=== PATIENT | male | born 1945 | race Caucasian/White ===

== ENCOUNTER 2024-11-14 22:40 | Inpatient (IN) ==
--- NOTE | 2024-11-14 23:23 | Emergency Department Note ---
History of Present Illness General Chief complaint: Abdominal Pain Stated complaint: FEVER, BODY ACHES, HERNIA ISSUES Time Seen by Provider: 11/14/24 22:54 History of Present Illness Maximum Pain Intensity: 5 This 77-year-old male with DM2 with no prior abdominal surgeries presents ER complaining of abdominal pain who has known hernias with fevers today that is now resolved. Patient denies chest pain, dyspnea, cough, congestion, vomiting, diarrhea, urinary symptoms. No history of bowel obstruction. No excessive Tylenol use. Past Med/Surg History Problem List (Updated 11/15/24 @ 01:47 by Judi Paris PA-C) Pancreatitis (Acute) Elevated LFTs (Acute) Abdominal pain, acute (Acute) Social History Smoking Status: Never smoker Preferred Language: Kinyarwanda Feels Safe at Home: Yes Review of Systems A total of 10 systems reviewed and were otherwise negative Physical Exam Vital Signs Vital Signs - 24 hr 11/14/24 22:44 11/15/24 00:12 11/15/24 00:19 Temperature 36.9 C Temperature Source Temporal Artery Scan Pulse Rate 110 H 81 Pulse Rate [Apical] 83 Pulse Rhythm [Apical] Regular Pulse Strength [Apical] Normal Respiratory Rate 18 18 Respiratory Effort / Characteristics Non-Labored Spontaneous Non-Labored Respiratory Depth Normal Normal Respiratory Pattern Regular Blood Pressure 109/71 Blood Pressure [Right Arm] 122/66 Blood Pressure Mean 83 Blood Pressure Mean [Right Arm] 84 Blood Pressure Position [Right Arm] Sitting Pulse Oximetry 95 96 Oxygen Delivery Method Room Air Room Air Sepsis Recent Fever Within 48 Hours Yes Sepsis New/Unexplained Change in Mental Status No Sepsis Action Taken by Nursing No Action Required VITALS: Vitals are noted on the nurse's note and reviewed by myself. Vital signs stable. GENERAL: Pleasant gentleman with family present, in no acute distress, nondiaphoretic, well-developed well-nourished. SKIN: Capillary reflex less than 2 seconds. HEENT: Normocephalic. PERRLA. EOMI. Nares patent. Mucous membranes moist. Neck is supple without nuchal rigidity. HEART: Regular rate and rhythm LUNGS: Clear to auscultation bilaterally without wheezes, rales or rhonchi. No retractions or accessory muscle use. ABDOMEN: Positive bowel sounds x 4. Normal tympanic percussion. Soft, tender to palpation lower abdomen, without masses or organomegaly. Gaytan sign negative. No guarding or rebound tenderness. no CVA tenderness MUSCULOSKELETAL: No gross musculoskeletal defects. NEURO: Patient was alert and oriented to person place and time. No focal neurological deficits. Course Administered Medications Discontinued Medications Sodium Chloride (Nss) 500 mls @ 999 mls/hr IV .Q31M ONE Stop: 11/14/24 23:26 Last Infusion: 11/15/24 00:24 Dose: Infused Documented By: Admin: 11/14/24 23:47 Dose: 999 mls/hr Documented By: ELZBIETA Sodium Chloride (Nss) 1,000 mls @ 999 mls/hr IV .Q1H1M ONE Stop: 11/15/24 01:25 Last Infusion: 11/15/24 02:19 Dose: Infused Documented By: Admin: 11/15/24 00:32 Dose: 999 mls/hr Documented By: DONN Piperacillin Sod/Tazobactam Sod (Zosyn) 4.5 gm in 100 mls @ 200 mls/hr IV NOW ONE; Protocol Stop: 11/15/24 01:30 Last Infusion: 11/15/24 02:19 Dose: Infused Documented By: Admin: 11/15/24 01:08 Dose: 200 mls/hr Documented By: DONN Sodium Chloride (Nss) 1,000 mls @ 999 mls/hr IV .Q1H1M ONE Stop: 11/15/24 02:01 Last Admin: 11/15/24 02:45 Dose: 999 mls/hr Documented By: DONN Magnesium Sulfate/Dextrose (Magnesium Sulfate / D5w) 1 gm in 100 mls @ 100 mls/hr IV Q1H LIANA Stop: 11/15/24 03:01 Last Admin: 11/15/24 02:45 Dose: 100 mls/hr Documented By: Infusion: 11/15/24 02:19 Dose: Infused Documented By: Admin: 11/15/24 01:08 Dose: 100 mls/hr Documented By: DONN Ioversol (Optiray 320 100ml) 94 ml IV ONCE ONE Stop: 11/15/24 00:54 Last Admin: 11/15/24 00:54 Dose: 94 ml Documented By: VANIA Medical Decision Making Medical Records Attestation: I reviewed the patient's medical records. Home Medications Current Medication List: was personally reviewed by me Laboratory Data Attestation: I reviewed the patient's lab results. 11/14/24 23:37 11/14/24 23:37 Lab Results 11/14/24 11/15/24 11/15/24 Range/Units 23:37 00:25 00:35 WBC 16.56 H (4.8-10.8) K/ul RBC 4.11 L (4.70-6.10) M/uL Hgb 12.5 L (14.0-18.0) g/dl Hct 37.1 L (42.0-52.0) % MCV 90.3 (80.0-100.0) fL MCH 30.4 (25.0-34.0) pg MCHC 33.7 (32.0-36.0) g/dL RDW Std Deviation 44.0 (36.4-46.3) fL RDW Coeff of Ariel 13.4 (11.5-14.5) % Plt Count 187 (130-400) K/uL MPV 10.7 (9.4-12.4) fL Immature Gran % (Auto) 0.5 % Neut % (Auto) 89.7 % Lymph % (Auto) 4.2 % Lyon % (Auto) 5.4 % Eos % (Auto) 0.0 % Baso % (Auto) 0.2 % Neut # (Auto) 14.84 H (1.40-6.50) K/uL Lymph # (Auto) 0.70 L (1.20-3.40) K/uL Lyon # (Auto) 0.90 H (0.11-0.59) K/uL Eos # (Auto) 0.00 (0.00-0.50) K/uL Baso # (Auto) 0.03 (0.00-0.20) K/uL Immature Gran # (Auto) 0.09 (0.01-0.20) K/uL PT 11.0 (9.0-12.0) Seconds INR 1.0 (0.9-1.1) APTT 25 (21-31) Seconds PTT Ratio 0.9 Sodium 134 L (136-145) mmol/L Potassium 3.6 (3.5-5.1) mmol/L Chloride 99 (98-107) mmol/L Carbon Dioxide 26 (21-32) mmol/L Anion Gap 9 (3-11) BUN 25 H (6-23) mg/dl Creatinine 1.33 (0.6-1.4) mg/dl Est Cr Clr Drug Dosing 44.3 ml/min eGFR 54.71 BUN/Creatinine Ratio 18.8 (10-20) Glucose 275 H (70-99(Fasting)) mg/dl Lactate 3.4 H* (0.4-2.0) mmol/L Calcium 9.9 (8.6-10.3) mg/dl Magnesium 1.5 L (1.7-2.4) mg/dl Total Bilirubin 2.1 H (0.2-1.0) mg/dl AST 1443 H (13-39) U/L ALT 644 H (7-52) U/L Alkaline Phosphatase 146 H (34-104) U/L Troponin I High Sens 13.7 (0-20) pg/ml Total Protein 7.0 (6.0-8.3) gm/dl Albumin 4.1 (3.4-5.0) gm/dl Globulin 2.9 (2.5-4.0) gm/dl Albumin/Globulin Ratio 1.4 (0.9-2) Lipase 985 H (11-82) U/L Procalcitonin 1.89 H (0-0.5) ng/ml Urine Color Dark Yellow Urine Appearance Clear (Clear) Urine pH 6.5 (4.5-7.5) Ur Specific [place] 1.026 (1.000-1.030) Urine Protein 2+ H (Negative) Urine Glucose (UA) 3+ H (Negative) Urine Ketones Trace H (Negative) Urine Blood Negative (Negative) Urine Nitrite Negative (Negative) Urine Bilirubin 1+ H (Negative) Urine Urobilinogen Positive H (Negative) Ur Leukocyte Esterase Negative (Negative) Urine WBC (Auto) 0-5 (0-5) /hpf Urine RBC (Auto) 0-2 (0-2) /hpf U Hyaline Cast (Auto) 0-2 (0-2) /lpf U Epithel Cells (Auto) 0-2 (0-2) /hpf Urine Bacteria (Auto) None Seen (None Seen) Adenovirus (PCR) Not Detected (NotDetected) B. pertussis DNA (PCR) Not Detected (NotDetected) B.parapertussis DNA PCR Not Detected (NotDetected) C. pneumoniae DNA (PCR) Not Detected (NotDetected) Coronavirus OC43 (PCR) Not Detected (NotDetected) Coronavirus HKU1 (PCR) Not Detected (NotDetected) Coronavirus 229E (PCR) Not Detected (NotDetected) SARS-CoV-2 (PCR) Not Detected (NotDetected) Coronavirus NL63 (PCR) Not Detected (NotDetected) Human Metapneumovir PCR Not Detected (NotDetected) Influenza Type A (PCR) Not Detected (NotDetected) Influenza Type B (PCR) Not Detected (NotDetected) M. pneumoniae (PCR) Not Detected (NotDetected) Parainfluenza 1 (PCR) Not Detected (NotDetected) Parainfluenza 2 (PCR) Not Detected (NotDetected) Parainfluenza 3 (PCR) Not Detected (NotDetected) Parainfluenza 4 (PCR) Not Detected (NotDetected) RSV (PCR) Not Detected (NotDetected) Entero/Rhino (PCR) Not Detected (NotDetected) 11/15/24 Range/Units 01:40 WBC (4.8-10.8) K/ul RBC (4.70-6.10) M/uL Hgb (14.0-18.0) g/dl Hct (42.0-52.0) % MCV (80.0-100.0) fL MCH (25.0-34.0) pg MCHC (32.0-36.0) g/dL RDW Std Deviation (36.4-46.3) fL RDW Coeff of Ariel (11.5-14.5) % Plt Count (130-400) K/uL MPV (9.4-12.4) fL Immature Gran % (Auto) % Neut % (Auto) % Lymph % (Auto) % Lyon % (Auto) % Eos % (Auto) % Baso % (Auto) % Neut # (Auto) (1.40-6.50) K/uL Lymph # (Auto) (1.20-3.40) K/uL Lyon # (Auto) (0.11-0.59) K/uL Eos # (Auto) (0.00-0.50) K/uL Baso # (Auto) (0.00-0.20) K/uL Immature Gran # (Auto) (0.01-0.20) K/uL PT (9.0-12.0) Seconds INR (0.9-1.1) APTT (21-31) Seconds PTT Ratio Sodium (136-145) mmol/L Potassium (3.5-5.1) mmol/L Chloride (98-107) mmol/L Carbon Dioxide (21-32) mmol/L Anion Gap (3-11) BUN (6-23) mg/dl Creatinine (0.6-1.4) mg/dl Est Cr Clr Drug Dosing ml/min eGFR BUN/Creatinine Ratio (10-20) Glucose (70-99(Fasting)) mg/dl Lactate 3.0 H* (0.4-2.0) mmol/L Calcium (8.6-10.3) mg/dl Magnesium (1.7-2.4) mg/dl Total Bilirubin (0.2-1.0) mg/dl AST (13-39) U/L ALT (7-52) U/L Alkaline Phosphatase (34-104) U/L Troponin I High Sens (0-20) pg/ml Total Protein (6.0-8.3) gm/dl Albumin (3.4-5.0) gm/dl Globulin (2.5-4.0) gm/dl Albumin/Globulin Ratio (0.9-2) Lipase (11-82) U/L Procalcitonin (0-0.5) ng/ml Urine Color Urine Appearance (Clear) Urine pH (4.5-7.5) Ur Specific [place] (1.000-1.030) Urine Protein (Negative) Urine Glucose (UA) (Negative) Urine Ketones (Negative) Urine Blood (Negative) Urine Nitrite (Negative) Urine Bilirubin (Negative) Urine Urobilinogen (Negative) Ur Leukocyte Esterase (Negative) Urine WBC (Auto) (0-5) /hpf Urine RBC (Auto) (0-2) /hpf U Hyaline Cast (Auto) (0-2) /lpf U Epithel Cells (Auto) (0-2) /hpf Urine Bacteria (Auto) (None Seen) Adenovirus (PCR) (NotDetected) B. pertussis DNA (PCR) (NotDetected) B.parapertussis DNA PCR (NotDetected) C. pneumoniae DNA (PCR) (NotDetected) Coronavirus OC43 (PCR) (NotDetected) Coronavirus HKU1 (PCR) (NotDetected) Coronavirus 229E (PCR) (NotDetected) SARS-CoV-2 (PCR) (NotDetected) Coronavirus NL63 (PCR) (NotDetected) Human Metapneumovir PCR (NotDetected) Influenza Type A (PCR) (NotDetected) Influenza Type B (PCR) (NotDetected) M. pneumoniae (PCR) (NotDetected) Parainfluenza 1 (PCR) (NotDetected) Parainfluenza 2 (PCR) (NotDetected) Parainfluenza 3 (PCR) (NotDetected) Parainfluenza 4 (PCR) (NotDetected) RSV (PCR) (NotDetected) Entero/Rhino (PCR) (NotDetected) Imaging Data Attestation: I personally reviewed and interpreted this imaging study as follows: Radiologist's Impression: Abdomen/Pelvis CT 11/14/24 22:54 EXAM: CT abd pelvis IV con only CLINICAL HISTORY: abd pain TECHNIQUE: Contiguous axial images were obtained from the level of the diaphragm to the pubic symphysis without and with intravenous contrast. Coronal and sagittal reconstructions were likewise performed and indicated to increase the sensitivity for detecting clinically relevant pathology. If IV contrast material had not been administered, the likelihood of detecting abnormalities relevant to the patient's condition would have been substantially decreased. CT scan was performed according to ALARA (as low as reasonable achievable). COMPARISON: None. FINDINGS: The visualized lung bases are clear. The liver is normal in size and attenuation. No focal liver lesions are seen. There is no intra or extrahepatic biliary ductal dilatation. Hepatic vasculature is patent. The gallbladder is present. The spleen, pancreas, and adrenal glands are unremarkable. The kidneys are normal in size and attenuation. There is no hydronephrosis or perinephric fat stranding. No renal calculi or renal masses are identified. The ureters are normal in caliber and no ureteral calculi are seen. The bladder is normal in contour. Pelvic viscera are unremarkable. Approximately 2.7 x 2.7 mm sized uncomplicateddiverticulum is arising from second part of duodenum. No focal or diffuse bowel wall thickening or evidence of bowel obstruction is identified. The appendix is visualized in the right lower quadrant and appears within normal limits. Abdominal and pelvic vasculature is patent. No adenopathy or fluid collections are seen. No aggressive appearing osseous lesions are identified. Multiple small uncomplicated sigmoid colonic diverticulosis Enlarged prostate. Small omental fat containing umbilical hernia IMPRESSION: 1. Small uncomplicated duodenum diverticulum. 2. Multiple small uncomplicated sigmoid colonic diverticulosis 3. Enlarged prostate. 4. Small omental fat containing umbilical hernia Electronically signed by Steven Regalado 11-15-2024 01:39 AM Gallbladder Ultrasound 11/15/24 01:04 EXAM: US gallbladder CLINICAL HISTORY: Abnormal LFTs. TECHNIQUE: Limited ultrasound of the liver and gallbladder was performed in greyscale and Doppler. Multiple images were obtained in transverse and longitudinal planes. COMPARISON: Previous CT dated 11/14/2024. FINDINGS: Liver: Liver size: The Liver appears enlarged in size and measures 18.84 cm with homogeneous echotexture. No evidence of focal lesions, cysts, or masses. Hepatic vasculature appears normal. Gallbladder: Gallbladder size: The gallbladder wall appears Thickened, predominantly in the region of the fundus wall appears heterogenous. The overall wall measures 0.34 cm, however in the region of the fundus of the gallbladder appears significantly thickened Image #240 ( 24/31 ). A small non-mobile area in the fundus, The imaging differentials among others include none mobile sludge ball however other sinister etiology cannot be ruled out Biliary Tree: Common bile duct diameter: it measures 0.39 cm. The common bile duct is within normal limits in caliber and not dilated. No evidence of choledocholithiasis or biliary obstruction. IMPRESSION: 1. Moderate hepatomegaly for correlation with LFT. 2. The gallbladder wall appears Thickened, predominantly in the region of the fundus wall appears heterogenous. 3. The overall wall measures 0.34 cm, however, the region of the fundus of the gallbladder appears significantly thickened Image #240 ( 24/31 ). 4. A small non-mobile area in the fundus, The imaging differentials among others include non-mobile sludge ball however other sinister etiology cannot be ruled out. 5. Overall finding could raise the possibility of acalculous cholecystitis however follow-up or MRCP is advised for further evaluation if clinically warranted. Electronically signed by Ajit Alves 11-15-2024 03:16 AM MDM Narrative Prior records/ancillary studies reviewed. Triage Nursing notes reviewed. Additional history obtained from family. The patient's history was concerning for abdominal pain. Differential diagnosis: Etiologies such as appendicitis, diverticulitis, PUD, biliary pathology, UTI, pancreatitis, obstruction, mesenteric ischemia, aortic pathology, infections, inflammatory bowel disease, renal colic, as well as others were entertained. Physical examination findings: As above. ER treatment provided: An order was placed for continuous cardiac monitoring. The monitor shows a rate of 60-110 with a sinus rhythm per my Independent interpretation. IV fluids per septic protocol were ordered, Zosyn was ordered for possible infection with reported fever and elevated LFTs and infection markers Patient had umbilical hernia on exam and with manual pressure was able to reduce it. Patient tolerated procedure well. On reassessment the patient felt better. Diagnostics interpreted by me: ECG: Upper abdominal pain EKG: Normal sinus, left axis, no acute ST-T wave changes, rate of 102. Impression sinus tachycardia left axis independent interpreted by myself The labs Independently Interpreted by myself revealed elevated LFTs. Coags were sent Blood cultures pending Leukocytosis, mild anemia Elevated infection markers Elevated lipase Imaging studies: Imaging was reviewed and read by radiology Consultation: A consultation was placed with the hospitalist. The case was discussed and diagnostics were reviewed. The patient was evaluated in the ER for further treatment. Exam and history seem consistent with abdominal pain and elevated LFTs with concerns for early pancreatitis. Imaging was negative for acute pancreatitis. Lipase was elevated. LFTs were elevated. No alcohol use. Patient is a type II diabetic. He had reported fever today and was started on antibiotics for possible infection with the elevated infection markers. Medicine was consulted case discussed. He will be evaluated for admission. By the evaluation outlined above emergent etiologies such as appendicitis, diverticulitis, PUD, UTI, obstruction, mesenteric ischemia, aortic pathology, inflammatory bowel disease, renal colic, as well as others were deemed relatively unlikely. The pt informed about the findings as listed above. All questions were answered and pleased with the treatment. The chart was completed utilizing [employer] voice recognition software. Grammatical errors, random word insertions, pronoun errors, and incomplete sentences are an occassional consequence of this system due to software limitations, ambient noise, and hardware issues. Any formal questions or concerns about the content, text, or information contained within the body of this dictation should be directly addressed to the physician field assistant for clarification. Impression & Plan Abdominal pain, acute, Elevated LFTs, Pancreatitis Discharge Plan Visit Data Chief Complaint: Abdominal Pain Stated Complaint: FEVER, BODY ACHES, HERNIA ISSUES ED Provider: Charlie Chawla ED Midlevel Provider: Judi Paris Discharge Problem: Abdominal pain, acute, Elevated LFTs, Pancreatitis Patient Disposition: Admitted As Inpatient Condition: Fair Forms Stand Alone Forms: [facility] Referrals Referrals: PCP,NO [Physician] -
[2024-11-14] MEDS: SODIUM CHLORIDE 0.9% 500 ML IV ONE (23:47)
[2024-11-15 00:17] LABS: Basophils # (auto) 0.03 K/uL (0.00-0.20); Basophils % (auto) 0.2 %; Hematocrit (blood only) 37.1 % (42.0-52.0); Hemoglobin 12.5 g/dl (14.0-18.0); Immature Granulocytes # (auto) 0.09 K/uL (0.01-0.20); Immature Granulocytes % (auto) 0.5 %; Lymphocytes % (auto) 4.2 %; Mean Corpuscular Hemoglobin 30.4 pg (25.0-34.0); Mean Corpuscular Hgb Conc 33.7 g/dL (32.0-36.0); Mean Corpuscular Volume 90.3 fL (80.0-100.0); Mean Platelet Volume 10.7 fL (9.4-12.4); Monocytes % (auto) 5.4 %; Neutrophils # (auto) 14.84 K/uL (1.40-6.50); Neutrophils % (auto) 89.7 %; Platelet Count 187 K/uL (130-400); RDW Coefficient of Variation 13.4 % (11.5-14.5); Red Blood Count 4.11 M/uL (4.70-6.10); White Blood Count 16.56 K/ul (4.8-10.8)
[2024-11-15] MEDS: SODIUM CHLORIDE 0.9% 1,000 ML IV ONE ×2 (00:32→02:45)
[2024-11-15 00:35] LABS: BUN Creatinine Ratio 18.8 (10-20); Calcium 9.9 mg/dl (8.6-10.3); Creatinine Clr Calc Pharmacy 44.3 ml/min; Potassium 3.6 mmol/L (3.5-5.1)
[2024-11-15 00:43] LABS: Troponin I High Sensitivity 13.7 pg/ml (0-20)
[2024-11-15 00:47] LABS: Appearance Urine Clear (Clear); Bacteria Urine Automated None Seen (None Seen); Bilirubin Urine 1+ (Negative); Blood Urine Negative (Negative); Cast Urine Automated 0-2 /lpf (0-2); Color Urine Dark Yellow; Epithelial Cell Urine Auto 0-2 /hpf (0-2); Glucose Urine UA 3+ (Negative); Ketones Urine Trace (Negative); Leukocyte Esterase Urine Negative (Negative); Nitrite Urine Negative (Negative); Protein Urine 2+ (Negative); RBC Urine Automated 0-2 /hpf (0-2); Specific Gravity Urine 1.026 (1.000-1.030); Urobilinogen Urine Positive (Negative); WBC Urine Automated 0-5 /hpf (0-5); pH Urine 6.5 (4.5-7.5)
[2024-11-15 00:53] LABS: Albumin Globulin Ratio 1.4 (0.9-2); Albumin Level 4.1 gm/dl (3.4-5.0); Bilirubin,Total 2.1 mg/dl (0.2-1.0); Globulin 2.9 gm/dl (2.5-4.0); Magnesium 1.5 mg/dl (1.7-2.4)
[2024-11-15] MEDS: OPTIRAY 320 100ml IV ONE (00:54)
[2024-11-15] MEDS: MAGNESIUM SULFATE / D5W 1 GM/100 ML BAG IV SCH (01:08)
[2024-11-15] MEDS: PIPERACILLIN/TAZOBACTAM 4.5 GM/100 ML BAG IV ONE (01:08)
[2024-11-15 01:20] LABS: Partial Thromboplastin Ratio 0.9; Partial Thromboplastin Time 25 Seconds (21-31)
[2024-11-15 01:35] LABS: Adenovirus PCR Not Detected (NotDetected); Bordetella parapertussis PCR Not Detected (NotDetected); Bordetella pertussis PCR Not Detected (NotDetected); Chlamydia pneumoniae PCR Not Detected (NotDetected); Coronavirus 229E PCR Not Detected (NotDetected); Coronavirus CoV-2 (COVID19)PCR Not Detected (NotDetected); Coronavirus HKU1 PCR Not Detected (NotDetected); Coronavirus NL63 PCR Not Detected (NotDetected); Coronavirus OC43PCR Not Detected (NotDetected); Human Metapneumovirus PCR Not Detected (NotDetected); Influenza A PCR Not Detected (NotDetected); Influenza B PCR Not Detected (NotDetected); Mycoplasma pneumoniae PCR Not Detected (NotDetected); Parainfluenza Virus 1 PCR Not Detected (NotDetected); Parainfluenza Virus 2 PCR Not Detected (NotDetected); Parainfluenza Virus 3 PCR Not Detected (NotDetected); Parainfluenza Virus 4 PCR Not Detected (NotDetected); Respiratory Syncytial VirusPCR Not Detected (NotDetected); Rhinovirus/Enterovirus PCR Not Detected (NotDetected)
--- NOTE | 2024-11-15 01:39 | CT Scan Report ---
EXAM: CT abd pelvis IV con only CLINICAL HISTORY: abd pain TECHNIQUE: Contiguous axial images were obtained from the level of the diaphragm to the pubic symphysis without and with intravenous contrast. Coronal and sagittal reconstructions were likewise performed and indicated to increase the sensitivity for detecting clinically relevant pathology. If IV contrast material had not been administered, the likelihood of detecting abnormalities relevant to the patient's condition would have been substantially decreased. CT scan was performed according to ALARA (as low as reasonable achievable). COMPARISON: None. FINDINGS: The visualized lung bases are clear. The liver is normal in size and attenuation. No focal liver lesions are seen. There is no intra or extrahepatic biliary ductal dilatation. Hepatic vasculature is patent. The gallbladder is present. The spleen, pancreas, and adrenal glands are unremarkable. The kidneys are normal in size and attenuation. There is no hydronephrosis or perinephric fat stranding. No renal calculi or renal masses are identified. The ureters are normal in caliber and no ureteral calculi are seen. The bladder is normal in contour. Pelvic viscera are unremarkable. Approximately 2.7 x 2.7 mm sized uncomplicateddiverticulum is arising from second part of duodenum. No focal or diffuse bowel wall thickening or evidence of bowel obstruction is identified. The appendix is visualized in the right lower quadrant and appears within normal limits. Abdominal and pelvic vasculature is patent. No adenopathy or fluid collections are seen. No aggressive appearing osseous lesions are identified. Multiple small uncomplicated sigmoid colonic diverticulosis Enlarged prostate. Small omental fat containing umbilical hernia IMPRESSION: 1. Small uncomplicated duodenum diverticulum. 2. Multiple small uncomplicated sigmoid colonic diverticulosis 3. Enlarged prostate. 4. Small omental fat containing umbilical hernia Electronically signed by Steven Regalado 11-15-2024 01:39 AM
--- NOTE | 2024-11-15 03:17 | Ultrasound Report ---
EXAM: US gallbladder CLINICAL HISTORY: Abnormal LFTs. TECHNIQUE: Limited ultrasound of the liver and gallbladder was performed in greyscale and Doppler. Multiple images were obtained in transverse and longitudinal planes. COMPARISON: Previous CT dated 11/14/2024. FINDINGS: Liver: Liver size: The Liver appears enlarged in size and measures 18.84 cm with homogeneous echotexture. No evidence of focal lesions, cysts, or masses. Hepatic vasculature appears normal. Gallbladder: Gallbladder size: The gallbladder wall appears Thickened, predominantly in the region of the fundus wall appears heterogenous. The overall wall measures 0.34 cm, however in the region of the fundus of the gallbladder appears significantly thickened Image #240 ( 24/31 ). A small non-mobile area in the fundus, The imaging differentials among others include none mobile sludge ball however other sinister etiology cannot be ruled out Biliary Tree: Common bile duct diameter: it measures 0.39 cm. The common bile duct is within normal limits in caliber and not dilated. No evidence of choledocholithiasis or biliary obstruction. IMPRESSION: 1. Moderate hepatomegaly for correlation with LFT. 2. The gallbladder wall appears Thickened, predominantly in the region of the fundus wall appears heterogenous. 3. The overall wall measures 0.34 cm, however, the region of the fundus of the gallbladder appears significantly thickened Image #240 ( 24/31 ). 4. A small non-mobile area in the fundus, The imaging differentials among others include non-mobile sludge ball however other sinister etiology cannot be ruled out. 5. Overall finding could raise the possibility of acalculous cholecystitis however follow-up or MRCP is advised for further evaluation if clinically warranted. Electronically signed by Ajit Alves 11-15-2024 03:16 AM
--- NOTE | 2024-11-15 03:40 | Emergency Department Note ---
ED Visit Note I was consulted by the Advanced Practice Provider, Yue Paris PA-C. I personally made/approved the management plan and take responsibility for the patient management. I performed a substantive portion of the visit. This includes the aspects of: -History/Physical/Personally seeing the patient. -MDM: Patient has findings concerning for mild sepsis with a leukocytosis and elevated lactate. Lactate could have been elevated secondary to his hernia although the patient has complete resolution of any abdominal symptoms at this point in time. He had marked elevation of his LFTs. He denied any Tylenol, alcohol, or mushroom use. Ultrasound imaging was done and is concerning for gallbladder wall thickening. Patient was treated with IV antibiotics and fluids. Discussed the need for hospital admission and patient and family were in agreement. -I independently interpreted the following studies: CT scan of the abdomen pelvis reveals umbilical hernia with omental fat. No bowel obstruction. I refer you to the EMR for further details. .
[2024-11-15] MEDS ORDERED: VANCOMYCIN CONSULT ACTIVE PRN (04:37)
--- NOTE | 2024-11-15 04:47 | History & Physical Report ---
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 Patient was having abdominal pain and was feeling feverish and came to the hospital. In the ER after his umbilical hernia is reduced his abdominal pain improved. But his LFTs came back elevated. Currently afebrile and hemodynamically stable. Denies any chest pain or shortness of breath. Denies cough. No runny nose or sore throat. No headache. Normal bowel and bladder movements. Resting comfortably. No usage of Tylenol. Elevated LFTs Total bilirubin 2.1 AST 1443 ALT 644 Alkaline phosphatase 146 Gallbladder ultrasound moderate hepatomegaly. Gallbladder thickened in the region of the fundus wall possible acalculous cholecystitis CT abdomen pelvis shows small uncomplicated duodenal diverticulum. Enlarged prostate. Uncomplicated sigmoid colon diverticulosis. Small omental fat- containing umbilical hernia. No focal liver lesions are seen. Etiology unclear Will follow acute hepatitis panel Follow repeat labs Consult GI in a.m. for further recommendation Possible sepsis Has leukocytosis [place] feverish at home Lactic acid 3.4 on presentation repeat is 3 Procalcitonin 1.89 Respiratory BioFire negative UA unremarkable ER gave Zosyn Will continue Zosyn IV Vanco with 48-hour stop IV normal saline 200 mL/h Will follow cultures Will follow repeat lactic acid Close monitor hemodynamics Possible pancreatitis Lipase 985 CT abdomen pelvis is okay Aggressive fluids as above N.p.o. 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 He says he takes about 11 medications and he could tell some of the medications. To verify his medications in a.m. 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 Patient was having abdominal pain and was feeling feverish and came to the hospital. In the ER after his umbilical hernia is reduced his abdominal pain improved. But his LFTs came back elevated. Currently afebrile and hemodynamically stable. Denies any chest pain or shortness of breath. Denies cough. No runny nose or sore throat. No headache. Normal bowel and bladder movements. Resting comfortably. No usage of Tylenol. Past medical history. As mentioned above Past surgical history. Surgery for cancer in the floor of the mouth Social history. No smoking. No alcohol use. Family history. Nothing significant Allergies Allergy/AdvReac Type Severity Reaction Status Date / Time No Known Allergies Allergy Unverified 11/15/24 05:13 Home Medications Medication Instructions Recorded Confirmed Type aspirin 81 mg tablet,delayed 81 mg PO DAILY 11/15/24 11/15/24 History release dulaglutide 3 mg/0.5 mL 3 mg subcut WK 11/15/24 11/15/24 History subcutaneous pen injector (Trulicity) ezetimibe 10 mg-simvastatin 20 mg 1 tab PO DAILY 11/15/24 11/15/24 History tablet metformin 1,000 mg tablet 1,000 mg PO BID 11/15/24 11/15/24 History metoprolol succinate 50 mg 50 mg PO DAILY 11/15/24 11/15/24 History tablet,extended release 24 hr omega 1-egf-xmy-fish oil 60 mg-90 1 cap PO DAILY 11/15/24 11/15/24 History mg-500 mg capsule (Fish Oil) tamsulosin 0.4 mg capsule 0.4 mg PO DAILY 11/15/24 11/15/24 History Past Med/Surg History Problem List (Updated 11/15/24 @ 01:47 by Judi Paris PA-C) Pancreatitis (Acute) Elevated LFTs (Acute) Abdominal pain, acute (Acute) Social History Smoking Status: Never smoker Second Hand Exposure: No; Do You Dip or Chew Tobacco: No; Hx Alcohol Use: No Hx Substance Use: No Preferred Language: Arabic Communication Ability: Effective Lead Pl Sql Developer Required: No Beliefs That Will Affect Care: None Current Living Situation: Spouse Other Information That Helps Us Care for You: No Feels Safe at Home: Yes Safety Concerns: Feels Safe At This Time Assistive Devices: None Review of Systems Review of Systems: All systems reviewed & are unremarkable except as noted in HPI & below Physical Exam Physical Exam: General- Not in acute distress Head- atraumatic Eyes- PERRL. ENT- oropharynx clear Neck- supple, no JVD. Lungs- clear to auscultation no wheezing or crackles Heart- regular rate and rhythm; no murmur, no gallop. Abdomen- normal bowel sounds, soft, mild discomfort in periumbilical area, no distension Extremities- no pretibial edema, no erythema seen Neuro- alert, oriented PERRL, no facial palsy; no dysarthria; moves extremities Results & Data Results & Data Vital Signs (Past 12 Hours) Vital Signs Temp Pulse Pulse Resp BP BP Pulse Ox 11/15/24 04:24 77 11/15/24 04:00 76 17 133/80 97 11/15/24 00:19 83 18 122/66 96 11/15/24 00:12 81 11/14/24 22:44 36.9 C 110 H 18 109/71 95 O2 Del Method 11/15/24 04:24 11/15/24 04:00 Room Air 11/15/24 00:19 Room Air 11/15/24 00:12 11/14/24 22:44 Room Air Diagnostic Findings Laboratory Results WBC 16.56 K/ul (4.8-10.8) H 11/14/24 23:37 RBC 4.11 M/uL (4.70-6.10) L 11/14/24 23:37 Hgb 12.5 g/dl (14.0-18.0) L 11/14/24 23:37 Hct 37.1 % (42.0-52.0) L 11/14/24 23:37 MCV 90.3 fL (80.0-100.0) 11/14/24 23:37 MCH 30.4 pg (25.0-34.0) 11/14/24 23:37 MCHC 33.7 g/dL (32.0-36.0) 11/14/24 23:37 RDW Std Deviation 44.0 fL (36.4-46.3) 11/14/24 23:37 RDW Coeff of Ariel 13.4 % (11.5-14.5) 11/14/24 23:37 Plt Count 187 K/uL (130-400) 11/14/24 23:37 MPV 10.7 fL (9.4-12.4) 11/14/24 23:37 Immature Gran % (Auto) 0.5 % 11/14/24 23:37 Neut % (Auto) 89.7 % 11/14/24 23:37 Lymph % (Auto) 4.2 % 11/14/24 23:37 Mower % (Auto) 5.4 % 11/14/24 23:37 Eos % (Auto) 0.0 % 11/14/24 23:37 Baso % (Auto) 0.2 % 11/14/24 23:37 Neut # (Auto) 14.84 K/uL (1.40-6.50) H 11/14/24 23:37 Lymph # (Auto) 0.70 K/uL (1.20-3.40) L 11/14/24 23:37 Mower # (Auto) 0.90 K/uL (0.11-0.59) H 11/14/24 23:37 Eos # (Auto) 0.00 K/uL (0.00-0.50) 11/14/24 23:37 Baso # (Auto) 0.03 K/uL (0.00-0.20) 11/14/24 23:37 Immature Gran # (Auto) 0.09 K/uL (0.01-0.20) 11/14/24 23:37 PT 11.0 Seconds (9.0-12.0) 11/14/24 23:37 INR 1.0 (0.9-1.1) 11/14/24 23:37 APTT 25 Seconds (21-31) 11/14/24 23:37 PTT Ratio 0.9 11/14/24 23:37 Sodium 134 mmol/L (136-145) L 11/14/24 23:37 Potassium 3.6 mmol/L (3.5-5.1) 11/14/24 23:37 Chloride 99 mmol/L (98-107) 11/14/24 23:37 Carbon Dioxide 26 mmol/L (21-32) 11/14/24 23:37 Anion Gap 9 (3-11) 11/14/24 23:37 BUN 25 mg/dl (6-23) H 11/14/24 23:37 Creatinine 1.33 mg/dl (0.6-1.4) 11/14/24 23:37 Est Cr Clr Drug Dosing 44.3 ml/min 11/14/24 23:37 eGFR 54.71 11/14/24 23:37 BUN/Creatinine Ratio 18.8 (10-20) 11/14/24 23:37 Glucose 275 mg/dl (70-99(Fasting)) H 11/14/24 23:37 Lactate 3.0 mmol/L (0.4-2.0) H* 11/15/24 01:40 Calcium 9.9 mg/dl (8.6-10.3) 11/14/24 23:37 Magnesium 1.5 mg/dl (1.7-2.4) L 11/14/24 23:37 Total Bilirubin 2.1 mg/dl (0.2-1.0) H 11/14/24 23:37 AST 1443 U/L (13-39) H 11/14/24 23:37 ALT 644 U/L (7-52) H 11/14/24 23:37 Alkaline Phosphatase 146 U/L (34-104) H 11/14/24 23:37 Troponin I High Sens 13.7 pg/ml (0-20) 11/14/24 23:37 Total Protein 7.0 gm/dl (6.0-8.3) 11/14/24 23:37 Albumin 4.1 gm/dl (3.4-5.0) 11/14/24 23:37 Globulin 2.9 gm/dl (2.5-4.0) 11/14/24 23:37 Albumin/Globulin Ratio 1.4 (0.9-2) 11/14/24 23:37 Lipase 985 U/L (11-82) H 11/14/24 23:37 Procalcitonin 1.89 ng/ml (0-0.5) H 11/14/24 23:37 Urine Color Dark Yellow 11/15/24 00:25 Urine Appearance Clear (Clear) 11/15/24 00:25 Urine pH 6.5 (4.5-7.5) 11/15/24 00:25 Ur Specific Vance 1.026 (1.000-1.030) 11/15/24 00:25 Urine Protein 2+ (Negative) H 11/15/24 00:25 Urine Glucose (UA) 3+ (Negative) H 11/15/24 00:25 Urine Ketones Trace (Negative) H 11/15/24 00:25 Urine Blood Negative (Negative) 11/15/24 00:25 Urine Nitrite Negative (Negative) 11/15/24 00:25 Urine Bilirubin 1+ (Negative) H 11/15/24 00:25 Urine Urobilinogen Positive (Negative) H 11/15/24 00:25 Ur Leukocyte Esterase Negative (Negative) 11/15/24 00:25 Urine WBC (Auto) 0-5 /hpf (0-5) 11/15/24 00:25 Urine RBC (Auto) 0-2 /hpf (0-2) 11/15/24 00:25 U Hyaline Cast (Auto) 0-2 /lpf (0-2) 11/15/24 00:25 U Epithel Cells (Auto) 0-2 /hpf (0-2) 11/15/24 00:25 Urine Bacteria (Auto) None Seen (None Seen) 11/15/24 00:25 Adenovirus (PCR) Not Detected (NotDetected) 11/15/24 00:35 B. pertussis DNA (PCR) Not Detected (NotDetected) 11/15/24 00:35 B.parapertussis DNA PCR Not Detected (NotDetected) 11/15/24 00:35 C. pneumoniae DNA (PCR) Not Detected (NotDetected) 11/15/24 00:35 Coronavirus OC43 (PCR) Not Detected (NotDetected) 11/15/24 00:35 Coronavirus HKU1 (PCR) Not Detected (NotDetected) 11/15/24 00:35 Coronavirus 229E (PCR) Not Detected (NotDetected) 11/15/24 00:35 SARS-CoV-2 (PCR) Not Detected (NotDetected) 11/15/24 00:35 Coronavirus NL63 (PCR) Not Detected (NotDetected) 11/15/24 00:35 Human Metapneumovir PCR Not Detected (NotDetected) 11/15/24 00:35 Influenza Type A (PCR) Not Detected (NotDetected) 11/15/24 00:35 Influenza Type B (PCR) Not Detected (NotDetected) 11/15/24 00:35 M. pneumoniae (PCR) Not Detected (NotDetected) 11/15/24 00:35 Parainfluenza 1 (PCR) Not Detected (NotDetected) 11/15/24 00:35 Parainfluenza 2 (PCR) Not Detected (NotDetected) 11/15/24 00:35 Parainfluenza 3 (PCR) Not Detected (NotDetected) 11/15/24 00:35 Parainfluenza 4 (PCR) Not Detected (NotDetected) 11/15/24 00:35 RSV (PCR) Not Detected (NotDetected) 11/15/24 00:35 Entero/Rhino (PCR) Not Detected (NotDetected) 11/15/24 00:35 Impressions Abdomen/Pelvis CT 11/14/24 22:54 EXAM: CT abd pelvis IV con only CLINICAL HISTORY: abd pain TECHNIQUE: Contiguous axial images were obtained from the level of the diaphragm to the pubic symphysis without and with intravenous contrast. Coronal and sagittal reconstructions were likewise performed and indicated to increase the sensitivity for detecting clinically relevant pathology. If IV contrast material had not been administered, the likelihood of detecting abnormalities relevant to the patient's condition would have been substantially decreased. CT scan was performed according to ALARA (as low as reasonable achievable). COMPARISON: None. FINDINGS: The visualized lung bases are clear. The liver is normal in size and attenuation. No focal liver lesions are seen. There is no intra or extrahepatic biliary ductal dilatation. Hepatic vasculature is patent. The gallbladder is present. The spleen, pancreas, and adrenal glands are unremarkable. The kidneys are normal in size and attenuation. There is no hydronephrosis or perinephric fat stranding. No renal calculi or renal masses are identified. The ureters are normal in caliber and no ureteral calculi are seen. The bladder is normal in contour. Pelvic viscera are unremarkable. Approximately 2.7 x 2.7 mm sized uncomplicateddiverticulum is arising from second part of duodenum. No focal or diffuse bowel wall thickening or evidence of bowel obstruction is identified. The appendix is visualized in the right lower quadrant and appears within normal limits. Abdominal and pelvic vasculature is patent. No adenopathy or fluid collections are seen. No aggressive appearing osseous lesions are identified. Multiple small uncomplicated sigmoid colonic diverticulosis Enlarged prostate. Small omental fat containing umbilical hernia IMPRESSION: 1. Small uncomplicated duodenum diverticulum. 2. Multiple small uncomplicated sigmoid colonic diverticulosis 3. Enlarged prostate. 4. Small omental fat containing umbilical hernia Electronically signed by Steven Regalado 11-15-2024 01:39 AM Gallbladder Ultrasound 11/15/24 01:04 EXAM: US gallbladder CLINICAL HISTORY: Abnormal LFTs. TECHNIQUE: Limited ultrasound of the liver and gallbladder was performed in greyscale and Doppler. Multiple images were obtained in transverse and longitudinal planes. COMPARISON: Previous CT dated 11/14/2024. FINDINGS: Liver: Liver size: The Liver appears enlarged in size and measures 18.84 cm with homogeneous echotexture. No evidence of focal lesions, cysts, or masses. Hepatic vasculature appears normal. Gallbladder: Gallbladder size: The gallbladder wall appears Thickened, predominantly in the region of the fundus wall appears heterogenous. The overall wall measures 0.34 cm, however in the region of the fundus of the gallbladder appears significantly thickened Image #240 ( 24/31 ). A small non-mobile area in the fundus, The imaging differentials among others include none mobile sludge ball however other sinister etiology cannot be ruled out Biliary Tree: Common bile duct diameter: it measures 0.39 cm. The common bile duct is within normal limits in caliber and not dilated. No evidence of choledocholithiasis or biliary obstruction. IMPRESSION: 1. Moderate hepatomegaly for correlation with LFT. 2. The gallbladder wall appears Thickened, predominantly in the region of the fundus wall appears heterogenous. 3. The overall wall measures 0.34 cm, however, the region of the fundus of the gallbladder appears significantly thickened Image #240 ( 24/31 ). 4. A small non-mobile area in the fundus, The imaging differentials among others include non-mobile sludge ball however other sinister etiology cannot be ruled out. 5. Overall finding could raise the possibility of acalculous cholecystitis however follow-up or MRCP is advised for further evaluation if clinically warranted. Electronically signed by Ajit Alves 11-15-2024 03:16 AM ECG Additional Comments: ECG sinus tachycardia with PACs with rate of 102. Left axis deviation. QTc 430. Code Status & VTE Plan VTE Prophylaxis Plan VTE Prophylaxis will be ordered: Yes
[2024-11-15] MEDS ORDERED: NITROGLYCERIN SL 0.4 MG/TAB TAB SL PRN (05:14)
[2024-11-15] MEDS ORDERED: ONDANSETRON INJ 2 MG/ML 2 ML VIAL IV PRN (05:14)
[2024-11-15] MEDS: VANCOMYCIN HCL 1,500 MG in SODIUM CHLORIDE 0.9% 500 ML IV ONE (05:49)
[2024-11-15] MEDS: SODIUM CHLORIDE 0.9% 1,000 ML IV SCH (05:51)
[2024-11-15] MEDS: Patient's ALLERGY Info needs ENTERED STA (05:51)
--- NOTE | 2024-11-15 07:16 | Electrocardiogram Report ---
Test Reason : Blood Pressure : */* mmHG Vent. Rate : 102 BPM Atrial Rate : 102 BPM P-R Int : 160 ms QRS Dur : 88 ms QT Int : 330 ms P-R-T Axes : 47 -43 90 degrees QTcB Int : 430 ms Sinus tachycardia with Premature atrial complexes , some consecutive Left axis deviation Nonspecific ST abnormality Abnormal ECG No previous ECGs available Confirmed by Gibran Lara ([id number]) on 11/15/2024 7:16:19 AM Referred By: REFERRED SELF Confirmed By: Gibran Lara
[2024-11-15 07:37] LABS: Basophils # (auto) 0.01 K/uL (0.00-0.20); Basophils % (auto) 0.1 %; Eosinophils # (auto) 0.02 K/uL (0.00-0.50); Eosinophils % (auto) 0.1 %; Hematocrit (blood only) 32.3 % (42.0-52.0); Hemoglobin 10.9 g/dl (14.0-18.0); Immature Granulocytes # (auto) 0.07 K/uL (0.01-0.20); Immature Granulocytes % (auto) 0.5 %; Lymphocytes # (auto) 1.15 K/uL (1.20-3.40); Lymphocytes % (auto) 8.6 %; Mean Corpuscular Hemoglobin 30.4 pg (25.0-34.0); Mean Corpuscular Hgb Conc 33.7 g/dL (32.0-36.0); Mean Platelet Volume 10.4 fL (9.4-12.4); Monocytes # (auto) 0.78 K/uL (0.11-0.59); Monocytes % (auto) 5.8 %; Neutrophils # (auto) 11.36 K/uL (1.40-6.50); Neutrophils % (auto) 84.9 %; Platelet Count 154 K/uL (130-400); RDW Coefficient of Variation 13.7 % (11.5-14.5); RDW Standard Deviation 45.6 fL (36.4-46.3); Red Blood Count 3.59 M/uL (4.70-6.10); White Blood Count 13.39 K/ul (4.8-10.8)
[2024-11-15 07:55] LABS: Albumin Level 3.4 gm/dl (3.4-5.0); BUN Creatinine Ratio 18.1 (10-20); Bilirubin Direct 0.9 mg/dl (0-0.2); Bilirubin,Total 1.8 mg/dl (0.2-1.0); Calcium 8.6 mg/dl (8.6-10.3); Creatinine Clr Calc Pharmacy 50.8 ml/min; Magnesium 1.9 mg/dl (1.7-2.4); Potassium 3.6 mmol/L (3.5-5.1)
[2024-11-15] MEDS: ASPIRIN 81 MG ECTAB PO SCH (08:27)
[2024-11-15] MEDS: TAMSULOSIN HCL 0.4 MG CAP PO SCH (08:28)
[2024-11-15] MEDS: PIPERACILLIN/TAZOBACTAM 4.5 GM/100 ML BAG IV SCH (08:28)
[2024-11-15] MEDS: METOPROLOL SUCC 25MG EXT REL TAB PO SCH (10:51)
--- NOTE | 2024-11-15 11:49 | Gastrointestinal Consultation ---
Date of Consultation November 15, 2024 Assessment & Plan (1) Pancreatitis: Clinical presentation most suggestive of acute gallstone pancreatitis. Though the elevated white count could be related to the pancreatitis. The fevers and chills suggest potential infection such as cholangitis. He has had a si gnificant improvement since admission with decreasing white count decreasing liver enzymes and resolution of the pain this is consistent with passage of a gallstone typically pancreatitis occurs with passage of a gallstone. To document the duct is clear and there are further stones in the duct to recreate the problem especially in light of his cholangitis story MRCP. If MRCP negative no common duct stone patient should consider cholecystectomy (2) Elevated LFTs: Suspect related to gallstones Plan MRCP. Potential ERCP if retained common duct stones. Typically we did lay ERCP for 48 hours after gallstone pancreatitis unless concern for cholangitis. 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 This progressed to chest discomfort. 1 episode of emesis. Nonbloody. On admission was found to have significantly elevated liver enzymes, bilirubin of 2.1 AST of 1443 ALT of 644 and an alkaline phosphatase of 146. Lipase was elevated at 985. These findings consistent with probable gallstone pancreatitis Imaging showed possible sludge ball in the gallbladder. The common bile duct did not appear dramatically enlarged measuring approximately 4 mm. Patient was having fevers and rigors consistent with potential biliary infection cholangitis. Since admission he feels dramatically improved he states almost 100%. His white count has decreased from 16,000-13,000. Liver enzymes also significantly improved. Bilirubin 1.8 AST from 1443-650. Allergies Allergy/AdvReac Type Severity Reaction Status Date / Time No Known Allergies Allergy Unverified 11/15/24 05:13 Home Medications Medication Instructions Recorded Confirmed Type aspirin 81 mg tablet,delayed 81 mg PO DAILY 11/15/24 11/15/24 History release dulaglutide 3 mg/0.5 mL 3 mg subcut WK 11/15/24 11/15/24 History subcutaneous pen injector (Trulicity) ezetimibe 10 mg-simvastatin 20 mg 1 tab PO DAILY 11/15/24 11/15/24 History tablet metformin 1,000 mg tablet 1,000 mg PO BID 11/15/24 11/15/24 History metoprolol succinate 50 mg 50 mg PO DAILY 11/15/24 11/15/24 History tablet,extended release 24 hr omega 5-czf-asv-fish oil 60 mg-90 1 cap PO DAILY 11/15/24 11/15/24 History mg-500 mg capsule (Fish Oil) tamsulosin 0.4 mg capsule 0.4 mg PO DAILY 11/15/24 11/15/24 History Patient History Social History Smoking Status: Never smoker Second Hand Exposure: No; Do You Dip or Chew Tobacco: No; Hx Alcohol Use: No Hx Substance Use: No Preferred Language: Turkish Communication Ability: Effective Hair Boiler Operator Required: No Beliefs That Will Affect Care: None Current Living Situation: Spouse Other Information That Helps Us Care for You: No Feels Safe at Home: Yes Safety Concerns: Feels Safe At This Time Assistive Devices: None Review of Systems Review of Systems: Fevers chills with rigors as noted above Respiratory no increased cough sputum production Cardiovascular currently no chest discomfort. [place] some chest pressure with the attack. GI as mentioned history presenting [facility] LEATHER WHITENER psych negative review of systems otherwise negative Physical Exam Physical Exam: Alert and orientated. Not clinically jaundiced. Appears in no distress. Chest and heart exams per hospitalist service Abdomen reveals an umbilical hernia. It is reducible and nontender. The abdomen is not distended. Bowel sounds LEATHER WHITENER no focal neurological changes Psych affect normal daughter at the bedside interacting Exam otherwise negative Results & Data Vital Signs (Past 12 Hours) Vital Signs Temp Pulse Pulse Resp BP BP Pulse Ox 11/15/24 07:36 65 11/15/24 07:30 68 16 133/72 96 11/15/24 07:28 96 11/15/24 07:12 72 31 H 11/15/24 06:51 70 26 H 11/15/24 06:45 70 23 11/15/24 06:30 70 24 11/15/24 06:24 74 23 11/15/24 06:18 73 24 11/15/24 06:00 76 15 11/15/24 05:54 72 23 11/15/24 05:45 73 24 11/15/24 05:24 80 21 11/15/24 05:21 36.7 C 78 18 133/88 97 11/15/24 05:21 75 18 133/88 97 11/15/24 05:20 02/16/25 05:12 77 27 H 11/15/24 04:42 71 23 11/15/24 04:33 75 22 11/15/24 04:24 77 11/15/24 04:12 81 25 H 11/15/24 04:00 77 21 11/15/24 04:00 76 17 133/80 97 11/15/24 03:27 76 25 H 11/15/24 03:12 76 16 11/15/24 02:33 80 21 11/15/24 01:42 78 23 11/15/24 01:21 82 24 11/15/24 01:00 81 27 H 11/15/24 00:55 133/59 L 11/15/24 00:54 83 17 11/15/24 00:30 86 22 11/15/24 00:19 83 18 122/66 96 11/15/24 00:12 81 Pulse Ox O2 Del Method O2 Del Method 11/15/24 07:36 11/15/24 07:30 Room Air 11/15/24 07:28 Room Air 11/15/24 07:12 11/15/24 06:51 11/15/24 06:45 11/15/24 06:30 11/15/24 06:24 11/15/24 06:18 11/15/24 06:00 11/15/24 05:54 11/15/24 05:45 11/15/24 05:24 11/15/24 05:21 Room Air 11/15/24 05:21 Room Air 11/15/24 05:20 96 Room Air 11/15/24 05:12 11/15/24 04:42 11/15/24 04:33 11/15/24 04:24 11/15/24 04:12 11/15/24 04:00 11/15/24 04:00 Room Air 11/15/24 03:27 11/15/24 03:12 11/15/24 02:33 11/15/24 01:42 11/15/24 01:21 11/15/24 01:00 11/15/24 00:55 11/15/24 00:54 11/15/24 00:30 11/15/24 00:19 Room Air 11/15/24 00:12 PG Care Time/CCT Total # of Minutes Spent Total Time Spent with Patient: Total time spent is greater than 50% in coordination of care (as documented) at patient's floor/unit and/or counseling patient: Coding Level of Care Code 36078 INT INP/OBS CARE MIN Diagnoses Pancreatitis K85.90 Elevated LFTs R79.89
--- NOTE | 2024-11-15 12:39 | Magnetic Resonance Report ---
MRCP CLINICAL HISTORY: Suspected CBD stone. Abdominal pain. TECHNIQUE: Utilizing a 1.5 Ira magnet and dedicated coil, multiplanar, multiecho imaging of the [facility] abdomen was performed utilizing heavily T2 weighted pulsing sequences without IV contrast. COMPARISON STUDY: CT of the abdomen and pelvis and right upper quadrant ultrasound November 15, 2024 . FINDINGS: This study is mildly compromised by motion artifact. There is no intra or extrahepatic bili fidelina ductal dilatation. The common bile duct measures 5 mm in caliber. No common bile duct calculi are identified. There is no pancreatic ductal dilatation. Incidental note is made of a diverticulum of t he second portion of the duodenum. There is subtle stranding adjacent to the pancreatic head and unci annia process and the second and third portions of the duodenum. No peripancreatic fluid collections a re present. Sludge or stones within the gallbladder are present the gallbladder is not distended. No hepatic lesions are identified on unenhanced exam. Spleen, adrenal glands and kidneys are unremarkabl e. There is no hydronephrosis. Caliber of visualized small and large bowel are normal. IMPRESSION: 1. No biliary ductal dilatation. No common bile duct calculi identified. Mild motion artifact. 2. Subtle peripancreatic edema. The findings may represent acute pancreatitis. 3. Small amount of sludge or stones within the gallbladder. ACT 112: Negative or not required by law. Electronically signed by: Juan Francisco Partida M.D. 11/15/2024 12:37 PM
--- NOTE | 2024-11-15 12:42 | Communication Note ---
Date of Service: November 15, 2024 MRCP negative for common duct stone. Clinical presentation consistent with past gallstone. Gallstone pancreatitis and potentially component of cholangitis. Surgery consult for cholecystectomy.
--- NOTE | 2024-11-15 13:00 | Pharmacy Report ---
Pharmacy PK ABX Note - Date of Service November 15, 2024 - Assessment and Plan Assessment 79 year old M receiving VANCOMYCIN/ZOSYN for EMPIRIC TREATMENT- Possible GI source. Pertinent microbiologic data includes: Blood cultures pending, procal 1.89, WBC 16, respiratory biofire negative. Plan Vancomycin * Loading dose: 1500 mg IV x 1 * Maintenance dose: 1250 mg IV every 18 hours * Regimen is predicted to achieve target AUC/IKER of 400-600 mg/L.hr * Random level to be ordered if continued > 48 hours Pharmacy will continue to follow and will adjust dose/frequency as necessary. Thank you. Pharmacy has transitioned to AUC monitoring for vancomycin. AUC/IKER is the preferred PK/PD target and is associated with decreased risk of nephrotoxicity compared to traditional trough targets.
--- NOTE | 2024-11-15 13:50 | Hospitalist Progress Note ---
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 Patient was having abdominal pain and was feeling feverish and came to the hospital. In the ER after his umbilical hernia is reduced his abdominal pain improved. Acute pancreatitis Suspected gallstone pancreatitis Umbilical hernia Patient presented to the hospital with severe abdominal pain. Total bilirubin elevated to 2.1 along with elevation in AST, ALP and alkaline phosphate. Leukocytosis present CT abdomen pelvis showed small omental fat-containing umbilical hernia Gallbladder ultrasound showed thickened gallbladder wall with sludge MRCP did not show any biliary ductal dilation; small amount of sludge/stone within the gallbladder. GI consulted; suspect pancreatitis related with passing gallstone. Surgery consulted for possible cholecystectomy and umbilical hernia repair. 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 It may contain grammatical, syntax or spelling errors. Any formal questions or concerns about the content, text or information contained within the body of this dictation should be directly addressed to the provider for clarification Admission and Anticipated Discharge Date Admission Date: November 15, 2024 Subjective Patient seen and examined at bedside. He reports significant improvement in abdominal pain. Denied nausea or vomiting. He has been afebrile and vital signs has been stable Review of Systems Review of Systems: All systems reviewed & are unremarkable except as noted in Subjective Physical Exam Physical Exam: General- Not in acute distress Head- atraumatic Eyes- PERRL. ENT- oropharynx clear Neck- supple, no JVD. Lungs- clear to auscultation no wheezing or crackles Heart- regular rate and rhythm; no murmur, no gallop. Abdomen- normal bowel sounds, soft, mild discomfort in periumbilical area, no distension Extremities- no pretibial edema, no erythema seen Neuro- alert, oriented PERRL, no facial palsy; no dysarthria; moves extremities Results & Data Results & Data Vital Signs (Past 12 Hours) Vital Signs Temp Pulse Pulse Resp BP BP Pulse Ox 11/15/24 11:42 69 24 11/15/24 11:30 70 28 H 11/15/24 11:21 70 24 11/15/24 11:15 70 27 H 11/15/24 11:00 73 17 11/15/24 11:00 124/65 11/15/24 11:00 124/65 11/15/24 11:00 124/65 11/15/24 10:57 69 26 H 11/15/24 10:36 68 23 11/15/24 10:21 66 12 11/15/24 10:00 128/66 11/15/24 10:00 128/66 11/15/24 09:57 65 5 L 11/15/24 09:51 64 14 11/15/24 09:45 67 16 11/15/24 09:30 63 8 L 11/15/24 08:42 64 24 96 11/15/24 08:24 63 21 95 11/15/24 08:15 67 22 95 11/15/24 08:00 123/63 11/15/24 08:00 123/63 11/15/24 07:57 65 21 94 11/15/24 07:54 66 23 94 11/15/24 07:42 65 22 94 11/15/24 07:36 65 11/15/24 07:30 69 19 95 11/15/24 07:30 126/63 11/15/24 07:30 126/63 11/15/24 07:30 126/63 11/15/24 07:30 126/63 11/15/24 07:30 68 16 133/72 96 11/15/24 07:28 96 11/15/24 07:12 72 31 H 11/15/24 06:51 70 26 H 11/15/24 06:45 70 23 11/15/24 06:30 70 24 11/15/24 06:24 74 23 11/15/24 06:18 73 24 11/15/24 06:00 76 15 11/15/24 05:54 72 23 11/15/24 05:45 73 24 11/15/24 05:24 80 21 11/15/24 05:21 36.7 C 78 18 133/88 97 11/15/24 05:21 75 18 133/88 97 11/15/24 05:20 11/15/24 05:12 77 27 H 11/15/24 04:42 71 23 11/15/24 04:33 75 22 11/15/24 04:24 77 11/15/24 04:12 81 25 H 11/15/24 04:00 77 21 11/15/24 04:00 76 17 133/80 97 11/15/24 03:27 76 25 H 11/15/24 03:12 76 16 11/15/24 02:33 80 21 Pulse Ox O2 Del Method O2 Del Method 11/15/24 11:42 11/15/24 11:30 11/15/24 11:21 11/15/24 11:15 11/15/24 11:00 11/15/24 11:00 11/15/24 11:00 11/15/24 11:00 11/15/24 10:57 11/15/24 10:36 11/15/24 10:21 11/15/24 10:00 11/15/24 10:00 11/15/24 09:57 11/15/24 09:51 11/15/24 09:45 11/15/24 09:30 11/15/24 08:42 11/15/24 08:24 11/15/24 08:15 11/15/24 08:00 11/15/24 08:00 11/15/24 07:57 11/15/24 07:54 11/15/24 07:42 11/15/24 07:36 11/15/24 07:30 11/15/24 07:30 11/15/24 07:30 11/15/24 07:30 11/15/24 07:30 11/15/24 07:30 Room Air 11/15/24 07:28 Room Air 11/15/24 07:12 11/15/24 06:51 11/15/24 06:45 11/15/24 06:30 11/15/24 06:24 11/15/24 06:18 11/15/24 06:00 11/15/24 05:54 11/15/24 05:45 11/15/24 05:24 11/15/24 05:21 Room Air 11/15/24 05:21 Room Air 11/15/24 05:20 96 Room Air 11/15/24 05:12 11/15/24 04:42 11/15/24 04:33 11/15/24 04:24 11/15/24 04:12 11/15/24 04:00 11/15/24 04:00 Room Air 11/15/24 03:27 11/15/24 03:12 11/15/24 02:33
--- NOTE | 2024-11-15 15:50 | Surgery Consultation ---
Date of Consultation November 15, 2024 Assessment & Plan (1) Pancreatitis: (2) Abdominal pain, acute: Plan 79-year-old gentleman presents with what appeared to have been a incarcerated umbilical hernia. This was reduced in the emergency department and his pain instantly was relieved. He denies any pain currently. He was found to have acute pancreatitis with elevated LFTs as well as stones and sludge in the gallbladder. No emergent surgical indications at this time. We will track his labs and symptoms while he is here. We will have him follow-up in the short- term in the outpatient setting to set up a laparoscopic cholecystectomy with umbilical hernia repair at the same time. 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 Patient was having abdominal pain and was feeling feverish and came to the hospital. In the ER after his umbilical hernia is reduced his abdominal pain improved. however, he was noted to have elevated LFTs and lipase. He denies any right upper quadrant pain or tenderness. He denies nausea or vomiting. He has been eating normally. Allergies Allergy/AdvReac Type Severity Reaction Status Date / Time No Known Allergies Allergy Unverified 11/15/24 05:13 Home Medications Medication Instructions Recorded Confirmed Type aspirin 81 mg tablet,delayed 81 mg PO DAILY 11/15/24 11/15/24 History release dulaglutide 3 mg/0.5 mL 3 mg subcut WK 11/15/24 11/15/24 History subcutaneous pen injector (Trulicity) ezetimibe 10 mg-simvastatin 20 mg 1 tab PO DAILY 11/15/24 11/15/24 History tablet metformin 1,000 mg tablet 1,000 mg PO BID 11/15/24 11/15/24 History metoprolol succinate 50 mg 50 mg PO DAILY 11/15/24 11/15/24 History tablet,extended release 24 hr omega [id number]-fish oil 60 mg-90 1 cap PO DAILY 11/15/24 11/15/24 History mg-500 mg capsule (Fish Oil) tamsulosin 0.4 mg capsule 0.4 mg PO DAILY 11/15/24 11/15/24 History Patient History Social History Smoking Status: Never smoker Second Hand Exposure: No; Do You Dip or Chew Tobacco: No; Hx Alcohol Use: No Hx Substance Use: No Preferred Language: Bengali Communication Ability: Effective Mail Superintendent Required: No Beliefs That Will Affect Care: None Current Living Situation: Spouse Feels Safe at Home: Yes Assistive Devices: None Review of Systems Review of Systems: All systems reviewed & are unremarkable except as noted in HPI & below Physical Exam Constitutional: WD/WN, vitals as above Eyes: PERRL, conjunctivae normal, anicteric sclerae Neck: trachea midline, no thyromegaly Respiratory: normal respiratory effort; no respiratory distress and no labored breathing Cardiovascular: Rate/Rhythm: regular rate and regular rhythm Gastrointestinal (Abdomen): Inspection/Auscultation: abdomen normal to inspection and + visible herniation ( Reducible fat-containing umbilical hernia, slightly tender); abdomen not distended Percussion/Palpation: abdomen soft; abdomen nontender, no guarding and abdomen not rigid Skin: no rashes, warm and dry Psychiatric: A+Ox3, euthymic affect Results & Data Vital Signs (Past 12 Hours) Vital Signs Temp Pulse Pulse Resp BP BP Pulse Ox 11/15/24 14:08 66 11/15/24 11:42 69 24 11/15/24 11:30 70 28 H 11/15/24 11:21 70 24 11/15/24 11:15 70 27 H 11/15/24 11:00 73 17 11/15/24 11:00 124/65 11/15/24 11:00 124/65 11/15/24 11:00 124/65 11/15/24 10:57 69 26 H 11/15/24 10:36 68 23 11/15/24 10:21 66 12 11/15/24 10:00 128/66 11/15/24 10:00 128/66 11/15/24 09:57 65 5 L 11/15/24 09:51 64 14 11/15/24 09:45 67 16 11/15/24 09:30 63 8 L 11/15/24 08:42 64 24 96 11/15/24 08:24 63 21 95 11/15/24 08:15 67 22 95 11/15/24 08:00 123/63 11/15/24 08:00 123/63 11/15/24 07:57 65 21 94 11/15/24 07:54 66 23 94 11/15/24 07:42 65 22 94 11/15/24 07:36 65 11/15/24 07:30 69 19 95 11/15/24 07:30 126/63 11/15/24 07:30 126/63 11/15/24 07:30 126/63 11/15/24 07:30 126/63 11/15/24 07:30 68 16 133/72 96 11/15/24 07:28 96 11/15/24 07:12 72 31 H 11/15/24 06:51 70 26 H 11/15/24 06:45 70 23 11/15/24 06:30 70 24 11/15/24 06:24 74 23 11/15/24 06:18 73 24 11/15/24 06:00 76 15 11/15/24 05:54 72 23 11/15/24 05:45 73 24 11/15/24 05:24 80 21 11/15/24 05:21 36.7 C 78 18 133/88 97 11/15/24 05:21 75 18 133/88 97 11/15/24 05:20 11/15/24 05:12 77 27 H 11/15/24 04:42 71 23 11/15/24 04:33 75 22 11/15/24 04:24 77 11/15/24 04:12 81 25 H 11/15/24 04:00 77 21 11/15/24 04:00 76 17 133/80 97 Pulse Ox O2 Del Method O2 Del Method 11/15/24 14:08 11/15/24 11:42 11/15/24 11:30 11/15/24 11:21 11/15/24 11:15 11/15/24 11:00 11/15/24 11:00 11/15/24 11:00 11/15/24 11:00 11/15/24 10:57 11/15/24 10:36 11/15/24 10:21 11/15/24 10:00 11/15/24 10:00 11/15/24 09:57 11/15/24 09:51 11/15/24 09:45 11/15/24 09:30 11/15/24 08:42 11/15/24 08:24 11/15/24 08:15 11/15/24 08:00 11/15/24 08:00 11/15/24 07:57 11/15/24 07:54 11/15/24 07:42 11/15/24 07:36 11/15/24 07:30 11/15/24 07:30 11/15/24 07:30 11/15/24 07:30 11/15/24 07:30 11/15/24 07:30 Room Air 11/15/24 07:28 Room Air 11/15/24 07:12 11/15/24 06:51 11/15/24 06:45 11/15/24 06:30 11/15/24 06:24 11/15/24 06:18 11/15/24 06:00 11/15/24 05:54 11/15/24 05:45 11/15/24 05:24 11/15/24 05:21 Room Air 11/15/24 05:21 Room Air 11/15/24 05:20 96 Room Air 11/15/24 05:12 11/15/24 04:42 11/15/24 04:33 11/15/24 04:24 11/15/24 04:12 11/15/24 04:00 11/15/24 04:00 Room Air Laboratory Results 11/15/24 11/15/24 11/15/24 Range/Units 07:11 01:40 00:35 WBC 13.39 H (4.8-10.8) K/ul RBC 3.59 L (4.70-6.10) M/uL Hgb 10.9 L (14.0-18.0) g/dl Hct 32.3 L (42.0-52.0) % MCV 90.0 (80.0-100.0) fL MCH 30.4 (25.0-34.0) pg MCHC 33.7 (32.0-36.0) g/dL RDW Std Deviation 45.6 (36.4-46.3) fL RDW Coeff of Ariel 13.7 (11.5-14.5) % Plt Count 154 (130-400) K/uL MPV 10.4 (9.4-12.4) fL Immature Gran % (Auto) 0.5 % Neut % (Auto) 84.9 % Lymph % (Auto) 8.6 % [place] % (Auto) 5.8 % Eos % (Auto) 0.1 % Baso % (Auto) 0.1 % Neut # (Auto) 11.36 H (1.40-6.50) K/uL Lymph # (Auto) 1.15 L (1.20-3.40) K/uL [place] # (Auto) 0.78 H (0.11-0.59) K/uL Eos # (Auto) 0.02 (0.00-0.50) K/uL Baso # (Auto) 0.01 (0.00-0.20) K/uL Immature Gran # (Auto) 0.07 (0.01-0.20) K/uL PT (9.0-12.0) Seconds INR (0.9-1.1) APTT (21-31) Seconds PTT Ratio Sodium 137 (136-145) mmol/L Potassium 3.6 (3.5-5.1) mmol/L Chloride 106 (98-107) mmol/L Carbon Dioxide 24 (21-32) mmol/L Anion Gap 7 (3-11) BUN 21 (6-23) mg/dl Creatinine 1.16 (0.6-1.4) mg/dl Est Cr Clr Drug Dosing 50.8 ml/min eGFR 64.47 BUN/Creatinine Ratio 18.1 (10-20) Glucose 176 H (70-99(Fasting)) mg/dl Lactate 1.1 3.0 H* (0.4-2.0) mmol/L Calcium 8.6 (8.6-10.3) mg/dl Magnesium 1.9 (1.7-2.4) mg/dl Total Bilirubin 1.8 H (0.2-1.0) mg/dl Direct Bilirubin 0.9 H (0-0.2) mg/dl AST 650 H (13-39) U/L ALT 482 H (7-52) U/L Alkaline Phosphatase 129 H (34-104) U/L Troponin I High Sens (0-20) pg/ml Total Protein 6.0 (6.0-8.3) gm/dl Albumin 3.4 (3.4-5.0) gm/dl Globulin (2.5-4.0) gm/dl Albumin/Globulin Ratio (0.9-2) Lipase (11-82) U/L Procalcitonin (0-0.5) ng/ml Urine Color Urine Appearance (Clear) Urine pH (4.5-7.5) Ur Specific [place] (1.000-1.030) Urine Protein (Negative) Urine Glucose (UA) (Negative) Urine Ketones (Negative) Urine Blood (Negative) Urine Nitrite (Negative) Urine Bilirubin (Negative) Urine Urobilinogen (Negative) Ur Leukocyte Esterase (Negative) Urine WBC (Auto) (0-5) /hpf Urine RBC (Auto) (0-2) /hpf U Hyaline Cast (Auto) (0-2) /lpf U Epithel Cells (Auto) (0-2) /hpf Urine Bacteria (Auto) (None Seen) Adenovirus (PCR) Not Detected (NotDetected) B. pertussis DNA (PCR) Not Detected (NotDetected) B.parapertussis DNA PCR Not Detected (NotDetected) C. pneumoniae DNA (PCR) Not Detected (NotDetected) Coronavirus OC43 (PCR) Not Detected (NotDetected) Coronavirus HKU1 (PCR) Not Detected (NotDetected) Coronavirus 229E (PCR) Not Detected (NotDetected) SARS-CoV-2 (PCR) Not Detected (NotDetected) Coronavirus NL63 (PCR) Not Detected (NotDetected) Hepatitis A IgM Ab Pending Hep Bs Antigen Pending Hep B Core IgM Ab Pending Hepatitis C Antibody Pending Human Metapneumovir PCR Not Detected (NotDetected) Influenza Type A (PCR) Not Detected (NotDetected) Influenza Type B (PCR) Not Detected (NotDetected) M. pneumoniae (PCR) Not Detected (NotDetected) Parainfluenza 1 (PCR) Not Detected (NotDetected) Parainfluenza 2 (PCR) Not Detected (NotDetected) Parainfluenza 3 (PCR) Not Detected (NotDetected) Parainfluenza 4 (PCR) Not Detected (NotDetected) RSV (PCR) Not Detected (NotDetected) Entero/Rhino (PCR) Not Detected (NotDetected) 11/15/24 11/14/24 Range/Units 00:25 23:37 WBC 16.56 H (4.8-10.8) K/ul RBC 4.11 L (4.70-6.10) M/uL Hgb 12.5 L (14.0-18.0) g/dl Hct 37.1 L (42.0-52.0) % MCV 90.3 (80.0-100.0) fL MCH 30.4 (25.0-34.0) pg MCHC 33.7 (32.0-36.0) g/dL RDW Std Deviation 44.0 (36.4-46.3) fL RDW Coeff of Ariel 13.4 (11.5-14.5) % Plt Count 187 (130-400) K/uL MPV 10.7 (9.4-12.4) fL Immature Gran % (Auto) 0.5 % Neut % (Auto) 89.7 % Lymph % (Auto) 4.2 % [place] % (Auto) 5.4 % Eos % (Auto) 0.0 % Baso % (Auto) 0.2 % Neut # (Auto) 14.84 H (1.40-6.50) K/uL Lymph # (Auto) 0.70 L (1.20-3.40) K/uL [place] # (Auto) 0.90 H (0.11-0.59) K/uL Eos # (Auto) 0.00 (0.00-0.50) K/uL Baso # (Auto) 0.03 (0.00-0.20) K/uL Immature Gran # (Auto) 0.09 (0.01-0.20) K/uL PT 11.0 (9.0-12.0) Seconds INR 1.0 (0.9-1.1) APTT 25 (21-31) Seconds PTT Ratio 0.9 Sodium 134 L (136-145) mmol/L Potassium 3.6 (3.5-5.1) mmol/L Chloride 99 (98-107) mmol/L Carbon Dioxide 26 (21-32) mmol/L Anion Gap 9 (3-11) BUN 25 H (6-23) mg/dl Creatinine 1.33 (0.6-1.4) mg/dl Est Cr Clr Drug Dosing 44.3 ml/min eGFR 54.71 BUN/Creatinine Ratio 18.8 (10-20) Glucose 275 H (70-99(Fasting)) mg/dl Lactate 3.4 H* (0.4-2.0) mmol/L Calcium 9.9 (8.6-10.3) mg/dl Magnesium 1.5 L (1.7-2.4) mg/dl Total Bilirubin 2.1 H (0.2-1.0) mg/dl Direct Bilirubin (0-0.2) mg/dl AST 1443 H (13-39) U/L ALT 644 H (7-52) U/L Alkaline Phosphatase 146 H (34-104) U/L Troponin I High Sens 13.7 (0-20) pg/ml Total Protein 7.0 (6.0-8.3) gm/dl Albumin 4.1 (3.4-5.0) gm/dl Globulin 2.9 (2.5-4.0) gm/dl Albumin/Globulin Ratio 1.4 (0.9-2) Lipase 985 H (11-82) U/L Procalcitonin 1.89 H (0-0.5) ng/ml Urine Color Dark Yellow Urine Appearance Clear (Clear) Urine pH 6.5 (4.5-7.5) Ur Specific [place] 1.026 (1.000-1.030) Urine Protein 2+ H (Negative) Urine Glucose (UA) 3+ H (Negative) Urine Ketones Trace H (Negative) Urine Blood Negative (Negative) Urine Nitrite Negative (Negative) Urine Bilirubin 1+ H (Negative) Urine Urobilinogen Positive H (Negative) Ur Leukocyte Esterase Negative (Negative) Urine WBC (Auto) 0-5 (0-5) /hpf Urine RBC (Auto) 0-2 (0-2) /hpf U Hyaline Cast (Auto) 0-2 (0-2) /lpf U Epithel Cells (Auto) 0-2 (0-2) /hpf Urine Bacteria (Auto) None Seen (None Seen) Adenovirus (PCR) (NotDetected) B. pertussis DNA (PCR) (NotDetected) B.parapertussis DNA PCR (NotDetected) C. pneumoniae DNA (PCR) (NotDetected) Coronavirus OC43 (PCR) (NotDetected) Coronavirus HKU1 (PCR) (NotDetected) Coronavirus 229E (PCR) (NotDetected) SARS-CoV-2 (PCR) (NotDetected) Coronavirus NL63 (PCR) (NotDetected) Hepatitis A IgM Ab Hep Bs Antigen Hep B Core IgM Ab Hepatitis C Antibody Human Metapneumovir PCR (NotDetected) Influenza Type A (PCR) (NotDetected) Influenza Type B (PCR) (NotDetected) M. pneumoniae (PCR) (NotDetected) Parainfluenza 1 (PCR) (NotDetected) Parainfluenza 2 (PCR) (NotDetected) Parainfluenza 3 (PCR) (NotDetected) Parainfluenza 4 (PCR) (NotDetected) RSV (PCR) (NotDetected) Entero/Rhino (PCR) (NotDetected) Diagnostic Findings EXAM: US gallbladder CLINICAL HISTORY: Abnormal LFTs. TECHNIQUE: Limited ultrasound of the liver and gallbladder was performed in greyscale and Doppler. Multiple images were obtained in transverse and longitudinal planes. COMPARISON: Previous CT dated 11/14/2024. FINDINGS: Liver: Liver size: The Liver appears enlarged in size and measures 18.84 cm with homogeneous echotexture. No evidence of focal lesions, cysts, or masses. Hepatic vasculature appears normal. Gallbladder: Gallbladder size: The gallbladder wall appears Thickened, predominantly in the region of the fundus wall appears heterogenous. The overall wall measures 0.34 cm, however in the region of the fundus of the gallbladder appears significantly thickened Image #240 ( ). A small non-mobile area in the fundus, The imaging differentials among others include none mobile sludge ball however other sinister etiology cannot be ruled out Biliary Tree: Common bile duct diameter: it measures 0.39 cm. The common bile duct is within normal limits in caliber and not dilated. No evidence of choledocholithiasis or biliary obstruction. IMPRESSION: 1. Moderate hepatomegaly for correlation with LFT. 2. The gallbladder wall appears Thickened, predominantly in the region of the fundus wall appears heterogenous. 3. The overall wall measures 0.34 cm, however, the region of the fundus of the gallbladder appears significantly thickened Image #240 ( 24/31 ). 4. A small non-mobile area in the fundus, The imaging differentials among others include non-mobile sludge ball however other sinister etiology cannot be ruled out. 5. Overall finding could raise the possibility of acalculous cholecystitis however follow-up or MRCP is advised for further evaluation if clinically warranted. Electronically signed by Ajit Alves 11-15-2024 03:16 AM MRCP CLINICAL HISTORY: Suspected CBD stone. Abdominal pain. TECHNIQUE: Utilizing a 1.5 Ira magnet and dedicated coil, multiplanar, mult iecho imaging of the upper abdomen was performed utilizing heavily T2 weighted pulsing sequences without IV contrast. COMPARISON STUDY: CT of the abdomen and pelvis and right upper quadrant ultrasound November 15, 2024. FINDINGS: This study is mildly compromised by motion artifact. There is no intra or extrahepatic biliary ductal dilatation. The common bile duct measures 5 mm in caliber. No common bile duct calculi are identified. There is no pancreatic ductal dilatation. 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 There is subtle stranding adjacent to the pancreatic head and uncinate process and the second and third portions of the duodenum. No peripancreatic fluid collections are present. Sludge or stones within the gallbladder are present the gallbladder is not distended. No hepatic lesions are identified on unenhanced exam. Spleen, adrenal glands and kidneys are unremarkable. There is no hydronephrosis. Caliber of visualized small and large bowel are normal. IMPRESSION: 1. No biliary ductal dilatation. No common bile duct calculi identified. Mild motion artifact. 2. Subtle peripancreatic edema. The findings may represent acute pancreatitis. 3. Small amount of sludge or stones within the gallbladder. ACT 112: Negative or not required by law. Electronically signed by: Juan Francisco Partida M.D. 11/15/2024 12:37 PM (1) Pancreatitis Chronicity: acute Pancreatitis type: unspecified pancreatitis type Acute pancreatitis complication: no infection or necrosis Qualified Code(s): K85.90 - Acute pancreatitis without necrosis or infection, unspecified
[2024-11-15] MEDS: VANCOMYCIN HCL 1,250 MG in SODIUM CHLORIDE 0.9% 250 ML IV SCH (18:21)
[2024-11-15] MEDS ORDERED: CARBOHYDRATES FOR HYPOGLYCEMIA PO PRN (19:20)
[2024-11-15] MEDS ORDERED: GLUCOSE 10 TAB/TUBE PO PRN (19:20)
[2024-11-15] MEDS ORDERED: GLUCAGON FOR INJ 1 MG VIAL SQ PRN (19:20)
[2024-11-15] MEDS ORDERED: DEXTROSE 50% 50 ML SYRINGE IV PRN (19:20)
[2024-11-15] MEDS ORDERED: GLUCOSE 40% GEL 15 GM TUBE PO PRN (19:20)
[2024-11-15] MEDS: INSULIN ASPART PER UNIT CHARGE SC SCH (20:23)
[2024-11-15 21:39] LABS: A calco-baum cmplx NotReported Not Detected (NotDetected); Bact fragilis Not Reported Not Detected (NotDetected); Blood Culture Id Panel See PCR Comment (NotDetected); C auris Not Reported Not Detected (NotDetected); Calbicans Not Reported Not Detected (NotDetected); Candida glabrata Not Reported Not Detected (NotDetected); Candida krusei Not Reported Not Detected (NotDetected); Cneoformans/gatti Not Reported Not Detected (NotDetected); Cparapsilosis Not Reported Not Detected (NotDetected); E cloacae compx Not Reported Not Detected (NotDetected); Efaecalis Not Reported Not Detected (NotDetected); Efaecium Not Reported Not Detected (NotDetected); Enterobacterales Not Reported Not Detected (NotDetected); Escherichia coli Not Reported Not Detected (NotDetected); H influenzae Not Reported Not Detected (NotDetected); K aerogenes Not Reported Not Detected (NotDetected); Koxytoca Not Reported Not Detected (NotDetected); Kpneumoniae grp Not Reported Not Detected (NotDetected); Lmonocyt Not Reported Not Detected (NotDetected); N meningitidis Not Reported Not Detected (NotDetected); P aeruginosa Not Reported Not Detected (NotDetected); Proteus spp Not Reported Not Detected (NotDetected); Salmonella spp Not Reported Not Detected (NotDetected); Staph lugdunensis Not Reported Not Detected (NotDetected); Staph spp. Not Reported Not Detected (NotDetected); Staphaureus Not Reported Not Detected (NotDetected); Staphepi Not Reported Not Detected (NotDetected); Stenmaltophilia Not Reported Not Detected (NotDetected); Strep agal(GrpB) Not Reported Not Detected (NotDetected); Strep pneum Not Reported Not Detected (NotDetected); Strep pyog (GrpA) Not Reported Not Detected (NotDetected); Strep spp Not Reported DETECTED (NotDetected)
[2024-11-15 21:49] LABS: Streptococcus spp DETECTED (NotDetected)
[2024-11-16 07:13] LABS: Basophils # (auto) 0.02 K/uL (0.00-0.20); Basophils % (auto) 0.3 %; Eosinophils # (auto) 0.19 K/uL (0.00-0.50); Eosinophils % (auto) 2.5 %; Hematocrit (blood only) 31.5 % (42.0-52.0); Hemoglobin 10.2 g/dl (14.0-18.0); Immature Granulocytes # (auto) 0.03 K/uL (0.01-0.20); Immature Granulocytes % (auto) 0.4 %; Lymphocytes # (auto) 1.19 K/uL (1.20-3.40); Lymphocytes % (auto) 15.5 %; Mean Corpuscular Hemoglobin 29.9 pg (25.0-34.0); Mean Corpuscular Hgb Conc 32.4 g/dL (32.0-36.0); Mean Corpuscular Volume 92.4 fL (80.0-100.0); Mean Platelet Volume 10.7 fL (9.4-12.4); Monocytes # (auto) 0.52 K/uL (0.11-0.59); Monocytes % (auto) 6.8 %; Neutrophils # (auto) 5.71 K/uL (1.40-6.50); Neutrophils % (auto) 74.5 %; Platelet Count 140 K/uL (130-400); RDW Coefficient of Variation 14.3 % (11.5-14.5); RDW Standard Deviation 48.3 fL (36.4-46.3); Red Blood Count 3.41 M/uL (4.70-6.10); White Blood Count 7.66 K/ul (4.8-10.8)
[2024-11-16 07:24] LABS: Albumin Globulin Ratio 1.2 (0.9-2); Albumin Level 2.9 gm/dl (3.4-5.0); BUN Creatinine Ratio 9.3 (10-20); Calcium 8.2 mg/dl (8.6-10.3); Creatinine Clr Calc Pharmacy 49.9 ml/min; Globulin 2.4 gm/dl (2.5-4.0); Potassium 3.5 mmol/L (3.5-5.1); Total Protein 5.3 gm/dl (6.0-8.3)
--- NOTE | 2024-11-16 09:39 | Hospitalist Progress Note ---
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 Patient was having abdominal pain and was feeling feverish and came to the hospital. In the ER after his umbilical hernia is reduced his abdominal pain improved. Acute pancreatitis Suspected gallstone pancreatitis Umbilical hernia Gram positive cocci in chains in blood culture Patient presented to the hospital with severe abdominal pain. Total bilirubin elevated to 2.1 along with elevation in AST, ALP and alkaline phosphate on admission; improved Leukocytosis present on admission;improved CT abdomen pelvis showed small omental fat-containing umbilical hernia Gallbladder ultrasound showed thickened gallbladder wall with sludge MRCP did not show any biliary ductal dilation; small amount of sludge/stone within the gallbladder. Blood culture 1 out of 4 growing gram-positive cocci in chains. PCR is negative. Discussed with microbiology; will need 1 more day for identification. Will continue with Zosyn ; repeat blood culture. Discussed with general surgery who evaluated him; they want to follow him as outpatient for laparoscopic cholecystectomy and umbilical hernia repair. He patient to follow-up with general surgery outpatient 1 week after discharge. 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 It may contain grammatical, syntax or spelling errors. Any formal questions or concerns about the content, text or information contained within the body of this dictation should be directly addressed to the provider for clarification Admission and Anticipated Discharge Date Admission Date: November 15, 2024 Subjective Patient seen and examined at bedside; he is comfortable; not in distress. He d enies any abdominal pain or discomfort. He is saturating well on room air. Vital signs are stable and he was afebrile overnight. Review of Systems Review of Systems: All systems reviewed & are unremarkable except as noted in Subjective Physical Exam Physical Exam: General- Not in acute distress Head- atraumatic Eyes- PERRL. ENT- oropharynx clear Neck- supple, no JVD. Lungs- clear to auscultation no wheezing or crackles Heart- regular rate and rhythm; no murmur, no gallop. Abdomen- normal bowel sounds, soft, mild discomfort in periumbilical area, no distension Extremities- no pretibial edema, no erythema seen Neuro- alert, oriented PERRL, no facial palsy; no dysarthria; moves extremities Results & Data Results & Data Vital Signs (Past 12 Hours) Vital Signs Temp Pulse Pulse Resp BP Pulse Ox O2 Del Method 11/16/24 09:00 57 L 11/16/24 07:50 36.8 C 60 18 149/63 H 95 Room Air 11/16/24 03:14 36.8 C 53 L 16 139/60 94 Room Air 11/15/24 23:06 36.8 C 60 16 112/69 94 Room Air 11/15/24 23:00 72
[2024-11-16 09:51] LABS: Hep B Surface Ag with confirm Negative (Negative)
[2024-11-16 09:57] LABS: Hep C Ab Rflx HepCQuant RNA Negative (Negative)
[2024-11-16] MEDS: INSULIN ASPART PER UNIT CHARGE SC SCH (12:41)
--- NOTE | 2024-11-16 14:10 | Communication Note ---
Date of Service: November 16, 2024 Chart reviewed patient. He is on a regular diet. Has not required any pain medication in >24 hrs. 1/ blood cultures + for GPC on 11/14. On IV Zosyn, was on vancomycin previously as well. Remaining blood cultures are no growth to date. As long as patient continues to feel well symptomatically from abdominal standpoint he may f/u in the office within 1 week for scheduling of a combination elective cholecystectomy and umbilical hernia repair. Please call if any questions/concerns during patient's admission. Otherwise dispo when cleared by medicine.
[2024-11-16] MEDS: ENOXAPARIN INJ 40 MG/0.4 ML SYR SQ SCH (21:15)
[2024-11-17 06:40] LABS: Basophils # (auto) 0.01 K/uL (0.00-0.20); Basophils % (auto) 0.2 %; Eosinophils # (auto) 0.22 K/uL (0.00-0.50); Hematocrit (blood only) 31.6 % (42.0-52.0); Hemoglobin 10.4 g/dl (14.0-18.0); Immature Granulocytes # (auto) 0.04 K/uL (0.01-0.20); Immature Granulocytes % (auto) 0.7 %; Lymphocytes # (auto) 1.23 K/uL (1.20-3.40); Lymphocytes % (auto) 22.4 %; Mean Corpuscular Hemoglobin 30.1 pg (25.0-34.0); Mean Corpuscular Hgb Conc 32.9 g/dL (32.0-36.0); Mean Corpuscular Volume 91.6 fL (80.0-100.0); Monocytes # (auto) 0.37 K/uL (0.11-0.59); Monocytes % (auto) 6.7 %; Neutrophils # (auto) 3.63 K/uL (1.40-6.50); Platelet Count 142 K/uL (130-400); RDW Coefficient of Variation 14.2 % (11.5-14.5); Red Blood Count 3.45 M/uL (4.70-6.10)
[2024-11-17 07:02] LABS: Albumin Level 3.2 gm/dl (3.4-5.0); BUN Creatinine Ratio 10.6 (10-20); Bilirubin Direct 0.6 mg/dl (0-0.2); Bilirubin,Total 1.3 mg/dl (0.2-1.0); Calcium 8.6 mg/dl (8.6-10.3); Creatinine Clr Calc Pharmacy 48.3 ml/min; Potassium 3.4 mmol/L (3.5-5.1); Total Protein 5.7 gm/dl (6.0-8.3)
[2024-11-17 09:34] VITALS: PULSE 50
[2024-11-17 10:26] VITALS: RESP 18; TEMP 97.9; O2SAT 95
--- NOTE | 2024-11-17 10:33 | Communication Note ---
Date of Service: November 17, 2024 Patient seen this am stating he is leaving today and has follow up organize with surgery for outpatient procedures.
[2024-11-17 11:11] LABS: Hepatitis A Antibody IgM NON-REACTIVE (NON-REACTIVE); Hepatitis B Core Antibody IgM NON-REACTIVE (NON-REACTIVE)
--- NOTE | 2024-11-17 11:24 | Discharge Summary ---
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 Patient was having abdominal pain and was feeling feverish and came to the hospital. In the ER after his umbilical hernia is reduced his abdominal pain improved. But his LFTs came back elevated. Currently afebrile and hemodynamically stable. Denies any chest pain or shortness of breath. Denies cough. No runny nose or sore throat. No headache. Normal bowel and bladder movements. Resting comfortably. No usage of Tylenol. Past medical history. As mentioned above Past surgical history. Surgery for cancer in the floor of the mouth Social history. No smoking. No alcohol use. Family history. Nothing significant Admission Exam Per Admitting Provider General- Not in acute distress Head- atraumatic Eyes- PERRL. ENT- oropharynx clear Neck- supple, no JVD. Lungs- clear to auscultation no wheezing or crackles Heart- regular rate and rhythm; no murmur, no gallop. Abdomen- normal bowel sounds, soft, mild discomfort in periumbilical area, no distension Extremities- no pretibial edema, no erythema seen Neuro- alert, oriented PERRL, no facial palsy; no dysarthria; moves extre mities Principal Diagnosis Acute pancreatitis Suspected gallstone pancreatitis Umbilical hernia Gram positive cocci in chains in blood culture, likely contaminant Discharge Exam General- Not in acute distress Head- atraumatic Eyes- PERRL. ENT- oropharynx clear Neck- supple, no JVD. Lungs- clear to auscultation no wheezing or crackles Heart- regular rate and rhythm; no murmur, no gallop. Abdomen-soft, non-tender Extremities- no pretibial edema, no erythema seen Neuro- alert, oriented PERRL, no facial palsy; no dysarthria; moves extremities Discharge Data Allergies Allergy/AdvReac Type Severity Reaction Status Date / Time No Known Allergies Allergy Unverified 11/15/24 05:13 Consultations 11/15/24 01:28 ED Decision to Admit Stat 11/15/24 05:14 Consult Gastroenterology Routine 11/15/24 10:55 Consult General Surgery Routine Ordered Studies 11/14/24 22:54 CT abd pelvis IV con only Stat 11/15/24 01:04 US gallbladder Stat 11/15/24 08:00 MR MRCP Urgent Hospital Course (1) Elevated LFTs: 79-year-old male with past medical history significant for diabetes, hyperlipidemia, BPH, hypertension, 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 Patient was having abdominal pain and was feeling feverish and came to the hospital. In the ER after his umbilical hernia is reduced his abdominal pain improved. Acute pancreatitis Suspected gallstone pancreatitis Umbilical hernia Gram positive cocci in chains in blood culture- contaminant. Patient presented to the hospital with severe abdominal pain. Total bilirubin elevated to 2.1 along with elevation in AST, ALP and alkaline phosphate on admission; Leukocytosis present on admission CT abdomen pelvis showed small omental fat-containing umbilical hernia Gallbladder ultrasound showed thickened gallbladder wall with sludge MRCP did not show any biliary ductal dilation; small amount of sludge/stone within the gallbladder. During the hospitalization, gastroenterology and general surgery was consulted for comanagement. General surgery recommended outpatient laparoscopic cholecystectomy and umbilical hernia repair. Patient's liver enzymes were trending down throughout the hospitalization. 1 out of 4 blood culture on admission grew Streptococcus Thermophilus; contaminant. Repeat blood culture was no growth in 24 hours. Patient did not have any abdominal pain or discomfort on the day of the discharge. He was afebrile throughout the hospitalization. Patient was discharged home with instructions for close follow-up with general surgery for laparoscopic cholecystectomy and umbilical hernia repair. Please note the above document was generated using voice recognition software. It may contain grammatical, syntax or spelling errors. Any formal questions or concerns about the content, text or information contained within the body of this dictation should be directly addressed to the provider for clarification Total Time Total Time Spent Total Time Spent (In Minutes): 45 Total Time Includes: Examination of the Patient, Discharge Planning, Medication Reconciliation, Communication With Other Providers and Other Discharge Plan Discharge Items Reason For Visit: ABDOMIANL PAIN, ELEVATED LFT, SEPSIS Discharge Diagnosis: Acute pancreatitis Suspected gallstone pancreatitis Umbilical hernia Condition on Discharge: Fair Activity: Resume your previous activity Non-emergency contact: Primary Care Provider Call non-emergency contact if: you have any medication questions and your symptoms worsen Follow-up/Referrals: Levon Aguila MD [Physician] - (please call to schedule follow up in the office within 1 week to discuss elective surgery for your gallbladder and umbilical hernia) Malik Contreras MD [Primary Care Provider] - 11/18/24 11:00 am Diet: Low Fat Addtl Attending Provider Instructions: You were admitted to the hospital for abdominal pain. Gallstone pancreatitis and umbilical hernia likely resulted in the abdominal pain. You were evaluated by GI as well as general surgery during the hospitalization. Please follow-up with Dr. Aguila from general surgery to schedule laparoscopic cholecystectomy and umbilical hernia repair. Please call the office to make an appointment. Hold Trulicity until the surgery. Hold ezetimibe-simvastatin given slight elevation in your liver function test. It can be resumed after liver function tests normalized. An appointment with your primary care has been set up for close posthospital follow-up. Pending Studies at Discharge: No Medications and DC Order Prescriptions: Continued metoprolol succinate 50 mg tablet extended release 24 hr 50 mg PO DAILY aspirin 81 mg Tablet,Delayed Release (Dr/Ec) 81 mg PO DAILY tamsulosin 0.4 mg capsule 0.4 mg PO DAILY metformin 1,000 mg tablet 1,000 mg PO BID omega [id number] oil [Fish Oil] 60-90-500 mg Capsule 1 cap PO DAILY Held ezetimibe-simvastatin 10-20 mg tablet 1 tab PO DAILY Hold Instructions: Resume on 11/23/24. Hold until surgery Trulicity 3 mg/0.5 mL pen injector 3 mg SUBCUT WK Hold Instructions: Resume on 11/23/24. Hold until surgery Admission Data Admit Date/Time: 11/15/24 04:37 Attending Provider: Tom Hinojosa Admit Provider: Adan Viveros Primary Care Provider: Malik Contreras Other Providers: Adan Viveros; Brian Murry; Levon Aguila
[2024-11-17 12:37] VITALS: BP 156/82
--- NOTE | 2024-11-18 12:45 | Coding Query ---
To promote full compliance with coding requirements relating to patient care, provider participation is requested in all cases of automatic buffing wheel former uncertainty. Please assist us with the question(s) below: Coding Question(s): The diagnosis below was documented in the ER, H&P and then subsequently fell off all further documentation. Please indicate if it is still a possible diagnosis or ruled out. Physician's Response(s): POSSIBLE MILD SEPSIS (ER documents "concerning for mild Sepsis", and the H&P documents, "Possible sepsis", and the 11/15 GI Consult documents Sepsis under Reason for Consultation, then documentation of possible Sepsis drops off) ( ) Diagnosed and POA. Please Specify below, in your clinical opinion, the most likely source of Sepsis: ( ) Possible Cholangitis ( ) Other Infectious Source: Please Specify ( ) Other: Please Specify ( ) Diagnosed and not POA. Please Specify below, in your clinical opinion, the most likely source of Sepsis: ( ) Possible Cholangitis ( ) Other Infectious Source: Please Specify ( ) Other: Please Specify (X ) Ruled out ( ) Other (please specify) MTDD
== END 2024-11-17 13:50 | disposition home or self-care (01) | DRG 444 ==
LOC: ED 22:40 → EDINP 11-15 04:37 → 2S 11-15 05:14

== ENCOUNTER 2025-02-02 12:51 | Inpatient (IN) ==
[2025-02-02] MEDS ORDERED: MoRPHine SULFATE 4 MG/ML 1 ML CARP\\VIAL IV PRN ×3 (12:59→19:20)
--- NOTE | 2025-02-02 13:24 | Emergency Department Note ---
Impression & Plan Abdominal pain, acute, Elevated LFTs, Pancreatitis, Post-operative pain ED Provider Note NAME: VIKASH DOUGHERTY III AGE: 79 SEX: M : 1945 ARRIVES VIA: Walk-In INFORMANT: Patient, ED PROVIDER(S): Steve Razo DO CHIEF COMPLAINT: Abdominal pain HPI: The patient is a 79-year-old male who presented to the emergency department for abdominal pain. The patient had cholecystectomy as well as a hernia repair in November of this year. He has been doing well and recovering nicely. Over the last 48 hours he started noticing upper abdominal pain and tightness. He also noticed nausea vomiting last night. The patient was not seen by his family doctor. The patient denies having any hematemesis. He denies having any dark or tarry stools. He presented to the emergency department for further evaluation. He did try to call his surgeon but he has not received a return call yet. ROS: See above HPI for pertinent positives & negatives. A total of 10 systems reviewed and were otherwise negative. PAST MEDICAL HISTORY: See Below PAST SURGICAL HISTORY: See Below FAMILY HISTORY: See Below SOCIAL HISTORY: See Below HOME MEDICATIONS: See Below ALLERGIES: See Below VITALS: See Below PHYSICAL EXAMINATION: GENERAL: Patient is awake alert in no acute distress patient is resting comfortably and showing no signs of anxiety EYES: The conjunctivae are clear. The pupils are round and reactive. EARS, NOSE, MOUTH AND THROAT: The nose is without any evidence of any deformity. Mucous membranes are moist. Tongue is midline. NECK: The neck is nontender and supple. RESPIRATORY: Normal respiratory effort is noted there is no evidence of wheezing rhonchi or rales CARDIOVASCULAR: Regular rate and rhythm noted there no murmurs rubs or gallops normal S1 normal S2. GASTROINTESTINAL: The abdomen is distended. There is diffuse tenderness to palpation but no specific guarding or rigidity. MUSCULOSKELETAL/EXTREMITIES: There is no evidence of gross deformity full range of motion is noted in the hips and shoulders. SKIN: There is no obvious evidence of any rash. There are no petechiae, pallor or cyanosis noted. NEUROLOGIC: Patient is awake alert and oriented x3 MEDICAL DECISION MAKING: The patient is a 79-year-old male who presented to the emergency department for upper abdominal pain. The patient is status post cholecystectomy. He is had his gallbladder removed several weeks ago. He was doing well and healing well. He started noticing worsening pain over the last few days. The patient was treated with IV fluids and IV pain medication in the emergency department. He was reevaluated multiple times. I discussed his findings with the on-call general surgical group. Because of the patient's abnormal LFTs as well as pancreatitis as well as his recent removal of his gallbladder I did discuss his condition with also gastroenterology. The patient's pain is significantly improved at this time. CT did not appear to be consistent with any ductal dilatation. They did recommend that we consider keeping the patient for further inpatient management and order an MRCP for further management. I did discuss this with the patient. He was agreeable with the plan. He also realizes that he may need to be transferred if the MRCP was abnormal and he would need an ERCP which would not be available here. Triage Nursing notes reviewed. Prior medical records reviewed Vital Signs: reviewed and remarkable for no significant abnormalities Differential diagnosis: Etiologies such as appendicitis, diverticulitis, obstruction, inflammatory bowel disease, renal colic, PUD, biliary pathology, pancreatitis, mesenteric ischemia, aortic pathology, infections, genitourinary, UTI, perforated viscus, as well as others were entertained. ER treatment provided: See below Diagnostics interpreted by me: ECG: EKG was obtained in the emergency department. My interpretation is sinus rhythm at 70 bpm. PACs were noted. There was no PVCs. There was no acute ST segment abnormalities noted. This was compared to a tracing from November 14, 2024. No changes were noted. Cardiac Monitoring: An order was placed for continuous cardiac monitoring. The monitor shows a rate of 67 bpm with sinus rhythm. Laboratory studies: As stated above and show below. Imaging studies: See below. Radiographic imaging was reviewed by myself Consultation(s): I discussed this case with Argelia who was on for general surgery I discussed this case with Dr. Laguna who is on-call for gastroenterology. I discussed this case with Olive who is on for the [facility] hospitalist group. The patient was signed out to Dr. Bean in the emergency department at change of shift. The MRCP is pending at this time. Please see his note for continuation of care and further disposition. 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 Social History Smoking Status: Never smoker Second Hand Exposure: No; Do You Dip or Chew Tobacco: No; Hx Alcohol Use: No Hx Substance Use: No Preferred Language: Yoruba Communication Ability: Effective Baseball Glove Shaper Required: No Beliefs That Will Affect Care: None Current Living Situation: Spouse Feels Safe at Home: Yes Assistive Devices: Glasses and Hearing Aid - Bilateral Allergies Allergies Allergy/AdvReac Type Severity Reaction Status Date / Time No Known Allergies Allergy Verified 12/14/24 05:48 Home Meds Home Medications Medication Instructions Recorded Confirmed aspirin 81 mg tablet,delayed 81 mg PO QPM 11/15/24 02/02/25 release dulaglutide 3 mg/0.5 mL 3 mg subcut WK 11/15/24 02/02/25 [facility] ezetimibe 10 mg-simvastatin 20 mg 1 tab PO HS 11/15/24 02/02/25 tablet metformin 1,000 mg tablet 1,000 mg PO BID 11/15/24 02/02/25 metoprolol succinate 50 mg 50 mg PO QPM 11/15/24 02/02/25 tablet,extended release 24 hr omega 4-zwl-yau-fish oil 60 mg-90 1 - 2 cap PO UD 11/15/24 02/02/25 mg-500 mg capsule (Fish Oil) tamsulosin 0.4 mg capsule 0.4 mg PO QPM 11/15/24 02/02/25 glipizide 5 mg tablet 5 mg PO QPM 12/02/24 02/02/25 Previous Rx's Medication Instructions Recorded oxycodone-acetaminophen 5 mg-325 1 tab PO Q6H PRN pain #10 tabs 12/14/24 mg tablet (Percocet) Results & Data (ED) Vital Signs Vital Signs - 24 hr 02/02/25 12:53 02/02/25 13:22 02/02/25 13:23 Temperature 36.5 C Temperature Source Temporal Artery Scan Pulse Rate 69 70 Pulse Rate [Apical] 72 Pulse Rhythm Regular Pulse Rhythm [Apical] Regular Pulse Strength [Apical] Normal Respiratory Rate 16 15 14 Respiratory Effort / Characteristics Non-Labored Spontaneous Non-Labored Spontaneous Respiratory Depth Normal Normal Respiratory Pattern Regular Regular Blood Pressure 156/73 H Blood Pressure [Right Arm] 138/69 Blood Pressure Mean 100 Blood Pressure Mean [Right Arm] 92 Blood Pressure Position Sitting Blood Pressure Position [Right Arm] Lying Pulse Oximetry 99 99 99 Oxygen Delivery Method Room Air Room Air Room Air Sepsis Recent Fever Within 48 Hours No Sepsis New/Unexplained Change in Mental Status No Sepsis Action Taken by Nursing No Action Required 02/02/25 14:11 02/02/25 15:00 Temperature Temperature Source Pulse Rate 66 Pulse Rate [Apical] 67 Pulse Rhythm Pulse Rhythm [Apical] Pulse Strength [Apical] Respiratory Rate 20 Respiratory Effort / Characteristics Non-Labored Spontaneous Respiratory Depth Normal Respiratory Pattern Regular Blood Pressure Blood Pressure [Right Arm] 126/78 Blood Pressure Mean Blood Pressure Mean [Right Arm] 94 Blood Pressure Position Blood Pressure Position [Right Arm] Semi-fowlers Pulse Oximetry 97 Oxygen Delivery Method Room Air Sepsis Recent Fever Within 48 Hours Sepsis New/Unexplained Change in Mental Status Sepsis Action Taken by [facility] Medications Current Medication List: was personally reviewed by me Laboratory Data Attestation: I reviewed the patient's lab results. 02/02/25 13:21 02/02/25 13:21 Lab Results 02/02/25 02/02/25 02/02/25 Range/Units 13:20 13:21 13:29 WBC 8.05 (4.8-10.8) K/ul RBC 4.19 L (4.70-6.10) M/uL Hgb 12.4 L (14.0-18.0) g/dl POC Hgb 12.9 L (14.0-18.0) g/dl Hct 37.7 L (42.0-52.0) % POC Hct 38 L (42-52) % MCV 90.0 (80.0-100.0) fL MCH 29.6 (25.0-34.0) pg MCHC 32.9 (32.0-36.0) g/dL RDW Std Deviation 45.2 (36.4-46.3) fL RDW Coeff of Ariel 13.8 (11.5-14.5) % Plt Count 182 (130-400) K/uL MPV 10.5 (9.4-12.4) fL Immature Gran % (Auto) 0.2 % Neut % (Auto) 75.8 % Lymph % (Auto) 14.9 % [place] % (Auto) 6.3 % Eos % (Auto) 2.4 % Baso % (Auto) 0.4 % Neut # (Auto) 6.10 (1.40-6.50) K/uL Lymph # (Auto) 1.20 (1.20-3.40) K/uL [place] # (Auto) 0.51 (0.11-0.59) K/uL Eos # (Auto) 0.19 (0.00-0.50) K/uL Baso # (Auto) 0.03 (0.00-0.20) K/uL Immature Gran # (Auto) 0.02 (0.01-0.20) K/uL PT 10.7 (9.0-12.0) Seconds INR 1.0 (0.9-1.1) APTT 25 (21-31) Seconds PTT Ratio 0.9 POC Sodium 138 (135-144) mmol/L Sodium 138 (136-145) mmol/L POC Potassium 3.9 (3.3-5.0) mmol/L Potassium 4.0 (3.5-5.1) mmol/L POC Chloride 103 (101-112) mmol/L Chloride 104 (98-107) mmol/L Carbon Dioxide 29 (21-32) mmol/L POC Total CO2 24 (24-31) mmol/L Anion Gap 5 (3-11) POC Anion Gap 17.0 (16-25) mmol/L POC BUN 20 H (7-18) mg/dl BUN 21 (6-23) mg/dl Creatinine 1.15 (0.6-1.4) mg/dl POC Creatinine 1.2 (0.6-1.3) mg/dl Est Cr Clr Drug Dosing 51.2 ml/min eGFR 65.14 BUN/Creatinine Ratio 18.3 (10-20) Glucose 171 H (70-99(Fasting)) mg/dl POC Glucose (other) 173 H (70-99) mg/dl Calcium 9.5 (8.6-10.3) mg/dl POC Ioniz Calcium Chantale 1.20 (1.12-1.32) mmol/l Total Bilirubin 2.6 H (0.2-1.0) mg/dl Direct Bilirubin 1.3 H (0-0.2) mg/dl AST 914 H (13-39) U/L ALT 608 H (7-52) U/L Alkaline Phosphatase 244 H (34-104) U/L Troponin I High Sens 7.3 (0-20) pg/ml Total Protein 6.8 (6.0-8.3) gm/dl Albumin 4.2 (3.4-5.0) gm/dl Globulin 2.6 (2.5-4.0) gm/dl Albumin/Globulin Ratio 1.6 (0.9-2) Lipase 1607 H (11-82) U/L Urine Color Dark Yellow Urine Appearance Clear (Clear) Urine pH 6.5 (4.5-7.5) Ur Specific [place] 1.023 (1.000-1.030) Urine Protein 1+ H (Negative) Urine Glucose (UA) Trace H (Negative) Urine Ketones Trace H (Negative) Urine Blood Negative (Negative) Urine Nitrite Negative (Negative) Urine Bilirubin 1+ H (Negative) Urine Urobilinogen Negative (Negative) Ur Leukocyte Esterase Negative (Negative) Urine WBC (Auto) 0-5 (0-5) /hpf Urine RBC (Auto) 0-2 (0-2) /hpf U Hyaline Cast (Auto) 0-2 (0-2) /lpf U Epithel Cells (Auto) 0-2 (0-2) /hpf Urine Bacteria (Auto) None Seen (None Seen) Administered Medications Discontinued Medications Sodium Chloride (Nss) 500 mls @ 999 mls/hr IV .Q31M STA Stop: 02/02/25 13:29 Last Infusion: 02/02/25 14:02 Dose: Infused Documented By: MARIA G Admin: 02/02/25 13:28 Dose: 999 mls/hr Documented By: MARIA G Piperacillin Sod/Tazobactam Sod (Zosyn) 4.5 gm in 100 mls @ 200 mls/hr IV NOW ONE; Protocol Stop: 02/02/25 15:28 Last Infusion: 02/02/25 15:48 Dose: Infused Documented By: Admin: 02/02/25 15:11 Dose: 200 mls/hr Documented By: SUGEY Ioversol (Optiray 320 100ml) 94 ml IV ONCE ONE Stop: 02/02/25 13:42 Last Admin: 02/02/25 13:41 Dose: 94 ml Documented By: VANIA Ondansetron HCl (Ondansetron Inj 2 Mg/Ml 2 Ml Vial) 4 mg IV NOW STA Stop: 02/02/25 13:00 Last Admin: 02/02/25 14:00 Dose: 4 mg Documented By: MARIA G Imaging Data Attestation: I personally reviewed and interpreted this imaging study as follows: My Impression: CT of the abdomen and pelvis was obtained in the emergency department. My interpretation is no free air or signs of bowel obstruction, final report below. Radiologist's Impression: Abdomen/Pelvis CT 02/02/25 12:59 CT SCAN OF THE ABDOMEN AND PELVIS WITH IV CONTRAST CLINICAL HISTORY: Postoperative vomiting. COMPARISON STUDY: CT of the abdomen and pelvis November 15, 2024 and MRCP November 25, 2024. TECHNIQUE: Following the IV administration of 94 cc of Optiray 320, CT scan of the abdomen and pelvis is performed from the lung bases to the proximal femora. Images are reviewed in the axial, sagittal, and coronal planes. IV contrast was administered without complication. A dose lowering technique was utilized adhering to the principles of ALARA. CT DOSE: 1195.09 mGy.cm FINDINGS: Lung bases: Moderate cardiomegaly is again noted. There is no pericardial effusion. The lung bases are clear. Liver/cholecystectomy bed: The liver morphology is normal and there are no hepatic lesions. There is no biliary ductal dilatation status post cholecystectomy. The hepatic veins and portal veins are patent. No operative bed fluid collection is present. There is trace stranding within the cholecystectomy bed. Spleen: Normal in size and attenuation. Pancreas: There are no pancreatic lesions. No pancreatic ductal dilatation is present. Pancreatic parenchymal calcifications are present. Adrenal glands: Unremarkable. Kidneys: Multiple subcentimeter left renal lesions are too small to characterize but favor cysts. There is no hydronephrosis. The kidneys enhance symmetrically. Abdominal vasculature: The caliber of the abdominal aorta is normal. Major vasculature is patent. Moderate atherosclerotic plaque within the abdominal aorta. Bowel: The caliber and wall thickness of small and large bowel are normal. Note is made of colonic diverticulosis without evidence for acute diverticulitis. The appendix is normal. Peritoneum: There is no intraperitoneal free air or abdominal ascites. Lymphadenopathy: None. Skeletal structures: No lytic or blastic lesions are seen. Pelvic viscera: The prostate is enlarged, measuring 6 cm in transverse dimension. There is no hydronephrosis. Bladder wall thickening is likely chronic. Abdominal wall status post umbilical hernia repair with mesh. IMPRESSION: 1. No biliary ductal dilatation. Trace stranding within the cholecystectomy bed which is not unexpected in the early postoperative period. No operative bed fluid collections. 2. Evidence for chronic pancreatitis. No CT evidence for acute pancreatitis. 3. Extensive colonic diverticulosis. No evidence for acute diverticulitis. ACT 112: Negative or not required by law. Electronically signed by: Juan Francisco Partida M.D. 02/02/2025 2:03 PM Chest X-Ray 02/02/25 12:59 XR chest 1V portable CLINICAL HISTORY: vomiting COMPARISON STUDY: None FINDINGS: There is mild cardiomegaly without pulmonary vascular congestion. No effusion or consolidation. IMPRESSION: No pneumonia seen. ACT 112: Negative or not required by law. Electronically signed by: Garcia Gibbs M.D. 02/02/2025 2:33 PM Discharge Plan Visit Data Chief Complaint: Abdominal Pain Stated Complaint: ABD PAIN, VOMIT, GALLBLADDER SURGERY, ED Provider: Gladys Bean Discharge Problem: Abdominal pain, acute, Elevated LFTs, Pancreatitis, Post-operative pain Patient Disposition: Being Evaluated by Hospitalist Condition: Good Forms Stand Alone Forms: [employer] Prescriptions Prescriptions: No Action glipizide 5 mg tablet 5 mg PO QPM oxycodone-acetaminophen [Percocet] 5-325 mg tablet 1 tab PO Q6H PRN (Reason: pain) Qty: 10 0RF metoprolol succinate 50 mg tablet extended release 24 hr 50 mg PO QPM aspirin 81 mg Tablet,Delayed Release (Dr/Ec) 81 mg PO QPM tamsulosin 0.4 mg capsule 0.4 mg PO QPM metformin 1,000 mg tablet 1,000 mg PO BID ezetimibe-simvastatin 10-20 mg tablet 1 tab PO HS Hold Instructions: Resume on 11/23/24. Hold until surgery omega 8-qtz-rxn-fish oil [Fish Oil] 60-90-500 mg Capsule 1 - 2 cap PO UD Rx Instructions: 1 cap QAM and 2 cap QPM Trulicity 3 mg/0.5 mL pen injector 3 mg SUBCUT WK Hold Instructions: Resume on 11/23/24. Hold until surgery Patient Comments: sundays Rx Instructions: Sun Referrals Referrals: Malik Contreras MD [Primary Care Provider] -
[2025-02-02] MEDS: SODIUM CHLORIDE 0.9% 500 ML IV STA (13:28)
[2025-02-02 13:40] LABS: iSTAT Creatinine 1.2 mg/dl (0.6-1.3); iSTAT Hemoglobin 12.9 g/dl (14.0-18.0); iSTAT Ionized Calcium 1.2 mmol/l (1.12-1.32); iSTAT Potassium 3.9 mmol/L (3.3-5.0)
[2025-02-02] MEDS: OPTIRAY 320 100ml IV ONE (13:41)
[2025-02-02 13:44] LABS: Basophils # (auto) 0.03 K/uL (0.00-0.20); Basophils % (auto) 0.4 %; Eosinophils # (auto) 0.19 K/uL (0.00-0.50); Eosinophils % (auto) 2.4 %; Hematocrit (blood only) 37.7 % (42.0-52.0); Hemoglobin 12.4 g/dl (14.0-18.0); Immature Granulocytes # (auto) 0.02 K/uL (0.01-0.20); Immature Granulocytes % (auto) 0.2 %; Lymphocytes % (auto) 14.9 %; Mean Corpuscular Hemoglobin 29.6 pg (25.0-34.0); Mean Corpuscular Hgb Conc 32.9 g/dL (32.0-36.0); Mean Platelet Volume 10.5 fL (9.4-12.4); Monocytes # (auto) 0.51 K/uL (0.11-0.59); Monocytes % (auto) 6.3 %; Neutrophils % (auto) 75.8 %; Platelet Count 182 K/uL (130-400); RDW Coefficient of Variation 13.8 % (11.5-14.5); RDW Standard Deviation 45.2 fL (36.4-46.3); Red Blood Count 4.19 M/uL (4.70-6.10); White Blood Count 8.05 K/ul (4.8-10.8)
[2025-02-02 13:49] LABS: Appearance Urine Clear (Clear); Bacteria Urine Automated None Seen (None Seen); Bilirubin Urine 1+ (Negative); Blood Urine Negative (Negative); Cast Urine Automated 0-2 /lpf (0-2); Color Urine Dark Yellow; Epithelial Cell Urine Auto 0-2 /hpf (0-2); Glucose Urine UA Trace (Negative); Ketones Urine Trace (Negative); Leukocyte Esterase Urine Negative (Negative); Nitrite Urine Negative (Negative); Protein Urine 1+ (Negative); RBC Urine Automated 0-2 /hpf (0-2); Specific Gravity Urine 1.023 (1.000-1.030); Urobilinogen Urine Negative (Negative); WBC Urine Automated 0-5 /hpf (0-5); pH Urine 6.5 (4.5-7.5)
[2025-02-02] MEDS: ONDANSETRON INJ 2 MG/ML 2 ML VIAL IV STA (14:00)
--- NOTE | 2025-02-02 14:05 | CT Scan Report ---
CT SCAN OF THE ABDOMEN AND PELVIS WITH IV CONTRAST CLINICAL HISTORY: Postoperative vomiting. COMPARISON STUDY: CT of the abdomen and pelvis November 15, 2024 and MRCP November 25, 2024. TECHNIQUE: Following the IV administration of 94 cc of Optiray 320, CT scan of the abdomen and pelvi s is performed from the lung bases to the proximal femora. Images are reviewed in the axial, sagittal , and coronal planes. IV contrast was administered without complication. A dose lowering technique wa s utilized adhering to the principles of ALARA. CT DOSE: 1195.09 mGy.cm FINDINGS: Lung bases: Moderate cardiomegaly is again noted. There is no pericardial effusion. The lung bases ar e clear. Liver/cholecystectomy bed: The liver morphology is normal and there are no hepatic lesions. There is no biliary ductal dilatation status post cholecystectomy. The hepatic veins and portal veins are kraus nt. No operative bed fluid collection is present. There is trace stranding within the cholecystectomy bed. Spleen: Normal in size and attenuation. Pancreas: There are no pancreatic lesions. No pancreatic ductal dilatation is present. Pancreatic par enchymal calcifications are present. Adrenal glands: Unremarkable. Kidneys: Multiple subcentimeter left renal lesions are too small to characterize but favor cysts. The re is no hydronephrosis. The kidneys enhance symmetrically. Abdominal vasculature: The caliber of the abdominal aorta is normal. Major vasculature is patent. Mod erate atherosclerotic plaque within the abdominal aorta. Bowel: The caliber and wall thickness of small and large bowel are normal. Note is made of colonic di verticulosis without evidence for acute diverticulitis. The appendix is normal. Peritoneum: There is no intraperitoneal free air or abdominal ascites. Lymphadenopathy: None. Skeletal structures: No lytic or blastic lesions are seen. Pelvic viscera: The prostate is enlarged, measuring 6 cm in transverse dimension. There is no hydrone phrosis. Bladder wall thickening is likely chronic. Abdominal wall status post umbilical hernia repair with mesh. IMPRESSION: 1. No biliary ductal dilatation. Trace stranding within the cholecystectomy bed which is not unexpect ed in the early postoperative period. No operative bed fluid collections. 2. Evidence for chronic pancreatitis. No CT evidence for acute pancreatitis. 3. Extensive colonic diverticulosis. No evidence for acute diverticulitis. ACT 112: Negative or not required by law. Electronically signed by: Juan Francisco Partida M.D. 02/02/2025 2:03 PM
[2025-02-02 14:07] LABS: BUN Creatinine Ratio 18.3 (10-20); Calcium 9.5 mg/dl (8.6-10.3); Creatinine Clr Calc Pharmacy 51.2 ml/min
[2025-02-02 14:09] LABS: Troponin I High Sensitivity 7.3 pg/ml (0-20)
[2025-02-02 14:14] LABS: Partial Thromboplastin Ratio 0.9; Partial Thromboplastin Time 25 Seconds (21-31); Prothrombin Time 10.7 Seconds (9.0-12.0)
[2025-02-02 14:27] LABS: Albumin Globulin Ratio 1.6 (0.9-2); Albumin Level 4.2 gm/dl (3.4-5.0); Bilirubin,Total 2.6 mg/dl (0.2-1.0); Globulin 2.6 gm/dl (2.5-4.0); Total Protein 6.8 gm/dl (6.0-8.3)
--- NOTE | 2025-02-02 14:34 | XRay Report ---
XR chest 1V portable CLINICAL HISTORY: vomiting COMPARISON STUDY: None FINDINGS: There is mild cardiomegaly without pulmonary vascular congestion. No effusion or consolidat ion. IMPRESSION: No pneumonia seen. ACT 112: Negative or not required by law. Electronically signed by: Garcia Gibbs M.D. 02/02/2025 2:33 PM
[2025-02-02] MEDS: PIPERACILLIN/TAZOBACTAM 4.5 GM/100 ML BAG IV ONE (15:11)
--- NOTE | 2025-02-02 16:31 | Hospitalist Consultation ---
Date of Consultation February 02, 2025 Assessment & Plan (1) Post-operative pain: (2) Abdominal pain, acute: (3) Transaminitis: This is a 79yo M with a PMH of DM II, HTN, HLD, history of mouth cancer s/p surgery in early as well as recent laparoscopic cholecystectomy and umbilical hernia repair with mesh in November 2024 who presents with abdominal pain and nausea since yesterday and was found to have transaminitis. Afebrile, no leukocytosis Tbili 2.6 (dbili 1.3), AST 914, ALT 608, alk phos 244, lipase 1607 CT abd pelvis : 1. No biliary ductal dilatation. Trace stranding within the cholecystectomy bed which is not unexpected in the early postoperative period. No operative bed fluid collections. 2. Evidence for chronic pancreatitis. No CT evidence for acute pancreatitis. 3. Extensive colonic diverticulosis. No evidence for acute diverticulitis. Undergoing MRCP - if positive, GI recommending transfer for ERCP Given 4mg morphine, Zofran x 1, Zosyn and 500ml NSS in ED (4) Diabetes mellitus, type 2: A1c 8.1 in Oct 2024 Hold home agents SSI while in-patient BSG AC HS (5) HTN (hypertension): Normotensive. Takes Toprol HS at home (6) HLD (hyperlipidemia): Takes ezetamibe-simvastatin HS at home Patient seen in collaboration with Dr. Diehl. Please see addendum. I spent a total of 60 minutes coordinating, documenting, and providing care for this patient excluding time spent in the performance of separately billed services or time spent by another provider/QHP. History of Present Illness Reason for Consultation: abd pain, nausea History of Present Illness This is a 79yo M with a PMH of DM II, HTN, HLD, history of mouth cancer s/p surgery in early as well as recent laparoscopic cholecystectomy and umbilical hernia repair with mesh in November 2024 who presents with abdominal pain and nausea since yesterday. Underwent lap raj for and umbilical hernia repair with mesh in November 2024 and had a routine post-op follow up with surgeon Dr. Aguila in December and post-op course has been uncomplicated. Has been feeling well post-operatively until yesterday when he developed nausea and concurrent mid abdominal pain described as dull, tight and constant. Exacerbated with movement. Was able to tolerate a small amount of toast around noon. No food or anything to drink since then. No F/C, CP, SOB, dysuria. No melena or hematochezia. Last bowel movement was the night before last. Has been taking all medications as prescribed. ED provider discussed with GI, who is recommending MRCP and if positive, will require transfer for ERCP. Gen surgery also consulted to evaluate patient. Allergies Allergy/AdvReac Type Severity Reaction Status Date / Time No Known Allergies Allergy Verified 12/14/24 05:48 Home Medications Medication Instructions Recorded Confirmed Type aspirin 81 mg tablet,delayed 81 mg PO QPM 11/15/24 02/02/25 History release dulaglutide 3 mg/0.5 mL 3 mg subcut WK 11/15/24 02/02/25 History subcutaneous pen injector (Trulicity) ezetimibe 10 mg-simvastatin 20 mg 1 tab PO HS 11/15/24 02/02/25 History tablet metformin 1,000 mg tablet 1,000 mg PO BID 11/15/24 02/02/25 History metoprolol succinate 50 mg 50 mg PO QPM 11/15/24 02/02/25 History tablet,extended release 24 hr omega 0-ser-eip-fish oil 60 mg-90 1 - 2 cap PO UD 11/15/24 02/02/25 History mg-500 mg capsule (Fish Oil) tamsulosin 0.4 mg capsule 0.4 mg PO QPM 11/15/24 02/02/25 History glipizide 5 mg tablet 5 mg PO QPM 12/02/24 02/02/25 History oxycodone-acetaminophen 5 mg-325 1 tab PO Q6H PRN pain #10 tabs 12/14/24 02/02/25 Rx mg tablet (Percocet) Patient History Medical History (Updated 02/02/25 @ 17:10 by Olive Kelly PA-C) HLD (hyperlipidemia) HTN (hypertension) History of oral cancer dx 2002; 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 Physical Exam Physical Exam: Please see Dr. Diehl's addendum for physical exam. Results & Data Results & Data Vital Signs (Past 12 Hours) Vital Signs Temp Pulse Pulse Resp BP BP Pulse Ox 02/02/25 15:00 67 20 126/78 97 02/02/25 14:11 66 02/02/25 13:23 70 14 99 02/02/25 13:22 72 15 138/69 99 02/02/25 12:53 36.5 C 69 16 156/73 H 99 O2 Del Method 02/02/25 15:00 Room Air 02/02/25 14:11 02/02/25 13:23 Room Air 02/02/25 13:22 Room Air 02/02/25 12:53 Room Air Laboratory Results Short CBC 02/02/25 Range/Units 13:21 WBC 8.05 (4.8-10.8) K/ul Hgb 12.4 L (14.0-18.0) g/dl Hct 37.7 L (42.0-52.0) % Plt Count 182 (130-400) K/uL BMP 02/02/25 13:21 Sodium 138 Potassium 4.0 Chloride 104 Carbon Dioxide 29 BUN 21 Creatinine 1.15 Glucose 171 H Calcium 9.5 Liver Function 02/02/25 Range/Units 13:21 Total Bilirubin 2.6 H (0.2-1.0) mg/dl Direct Bilirubin 1.3 H (0-0.2) mg/dl AST 914 H (13-39) U/L ALT 608 H (7-52) U/L Alkaline Phosphatase 244 H (34-104) U/L Albumin 4.2 (3.4-5.0) gm/dl Urine 02/02/25 Range/Units 13:20 Urine Color Dark Yellow Urine Appearance Clear (Clear) Urine pH 6.5 (4.5-7.5) Ur Specific Hollis 1.023 (1.000-1.030) Urine Protein 1+ H (Negative) Urine Glucose (UA) Trace H (Negative) Diagnostic Findings Abdomen/Pelvis CT 02/02/25 12:59 CT SCAN OF THE ABDOMEN AND PELVIS WITH IV CONTRAST CLINICAL HISTORY: Postoperative vomiting. COMPARISON STUDY: CT of the abdomen and pelvis November 15, 2024 and MRCP November 25, 2024. TECHNIQUE: Following the IV administration of 94 cc of Optiray 320, CT scan of the abdomen and pelvis is performed from the lung bases to the proximal femora. Images are reviewed in the axial, sagittal, and coronal planes. IV contrast was administered without complication. A dose lowering technique was utilized adhering to the principles of ALARA. CT DOSE: 1195.09 mGy.cm FINDINGS: Lung bases: Moderate cardiomegaly is again noted. There is no pericardial effusion. The lung bases are clear. Liver/cholecystectomy bed: The liver morphology is normal and there are no hepatic lesions. There is no biliary ductal dilatation status post cholecystectomy. The hepatic veins and portal veins are patent. No operative bed fluid collection is present. There is trace stranding within the cholecystectomy bed. Spleen: Normal in size and attenuation. Pancreas: There are no pancreatic lesions. No pancreatic ductal dilatation is present. Pancreatic parenchymal calcifications are present. Adrenal glands: Unremarkable. Kidneys: Multiple subcentimeter left renal lesions are too small to characterize but favor cysts. There is no hydronephrosis. The kidneys enhance symmetrically. Abdominal vasculature: The caliber of the abdominal aorta is normal. Major vasculature is patent. Moderate atherosclerotic plaque within the abdominal aorta. Bowel: The caliber and wall thickness of small and large bowel are normal. Note is made of colonic diverticulosis without evidence for acute diverticulitis. The appendix is normal. Peritoneum: There is no intraperitoneal free air or abdominal ascites. Lymphadenopathy: None. Skeletal structures: No lytic or blastic lesions are seen. Pelvic viscera: The prostate is enlarged, measuring 6 cm in transverse dimension. There is no hydronephrosis. Bladder wall thickening is likely chronic. Abdominal wall status post umbilical hernia repair with mesh. IMPRESSION: 1. No biliary ductal dilatation. Trace stranding within the cholecystectomy bed which is not unexpected in the early postoperative period. No operative bed fluid collections. 2. Evidence for chronic pancreatitis. No CT evidence for acute pancreatitis. 3. Extensive colonic diverticulosis. No evidence for acute diverticulitis. ACT 112: Negative or not required by law. Electronically signed by: Juan Francisco Partida M.D. 02/02/2025 2:03 PM Chest X-Ray 02/02/25 12:59 XR chest 1V portable CLINICAL HISTORY: vomiting COMPARISON STUDY: None FINDINGS: There is mild cardiomegaly without pulmonary vascular congestion. No effusion or consolidation. IMPRESSION: No pneumonia seen. ACT 112: Negative or not required by law. Electronically signed by: Garcia Gibbs M.D. 02/02/2025 2:33 PM ECG Additional Comments: EKG with sinus rhythm at [address] changes
[2025-02-02 16:32] LABS: Bilirubin Direct 1.3 mg/dl (0-0.2)
--- NOTE | 2025-02-02 18:35 | Magnetic Resonance Report ---
EXAM: MR MRCP CLINICAL HISTORY: transaminitis, eval for CBD dilatation/stone TECHNIQUE: Multiplanar multisequence magnetic resonance imaging of the abdomen without intravenous contrast. COMPARISON: CT 11/14/2024 and US 11/15/2024 reviewed. FINDINGS: Liver: is enlarged measuring 17 cm Homogeneous signal intensity on T2-weighted images. No focal hepatic lesions. Gallbladder: is not visualized likely surgically removed with surgical clips at the operative bed Bile Ducts: The common bile duct is prominent, measuring 9 mm with no stones inside may be attributed to post-cholecystectomy status. A diverticulum is noted arising from the medial wall of the 2nd part of the duodenum, measuring 28X26 mm, showing air fluid level ,it indents the distal end of the CBD No intrahepatic biliary dilation No evidence of choledocholithiasis. Trifurcation of the hepatic duct involves the joining of the right posterior, right anterior, and left hepatic ducts. (normal variant) Pancreas: Normal size and contour. Homogeneous signal intensity on T2-weighted images. No masses or cystic lesions. Pancreatic Duct: The pancreatic duct is normal in caliber. No evidence of ductal dilatation or filling defects. Spleen: Normal size and appearance. Homogeneous signal intensity. Kidneys: Normal size, shape, and position of both kidneys. Homogeneous signal intensity on T2-weighted images. No renal stones, masses, or hydronephrosis. Bilateral small simple renal cortical cysts Adrenal Glands: Normal size and morphology bilaterally. No adrenal masses. Surrounding Structures: No evidence of free fluid or abnormal fluid collections in the abdomen. Normal appearance of the visualized bowel loops. Prosatoatomegaly is noted Colonic diverticulosis IMPRESSION: 1. The 2nd part of the duodenum medial wall 28 x 26 mm shows a diverticulum that it indents the distal portion of the CBD. CBD is prominent proximally, measuring 9 mm with no intrahepatic biliary dilation, correlation with bilirubin levels is recommended. new findings. 2. No CBD stones 3. Cholecystectomy. New finding. 4. Mild hepatomegaly. stable 5. Prosatoatomegaly, stable 6. Colonic diverticulosis , stable Electronically signed by Kofi Constantino 02-02-2025 6:35 PM
[2025-02-02] MEDS ORDERED: oxyCODONE HCL IR 5 MG TAB (IMMEDIATE RELEASE) PO PRN (18:46)
[2025-02-02] MEDS ORDERED: GLUCOSE 10 TAB/TUBE PO PRN (18:47)
[2025-02-02] MEDS ORDERED: DEXTROSE 50% 50 ML SYRINGE IV PRN (18:47)
[2025-02-02] MEDS ORDERED: CARBOHYDRATES FOR HYPOGLYCEMIA PO PRN (18:47)
[2025-02-02] MEDS ORDERED: GLUCOSE 40% GEL 15 GM TUBE PO PRN (18:47)
[2025-02-02] MEDS ORDERED: GLUCAGON FOR INJ 1 MG VIAL SQ PRN (18:47)
--- NOTE | 2025-02-02 19:10 | History & Physical Report ---
Date of Service February 02, 2025 Assessment & Plan (1) Post-operative pain: (2) Abdominal pain, acute: (3) Transaminitis: Plan: This is a 79yo M with a PMH of DM II, HTN, HLD, history of mouth cancer s/p surgery in early as well as recent laparoscopic cholecystectomy and umbilical hernia repair with mesh in November 2024 who presents with abdominal pain and nausea since yesterday and was found to have transaminitis. Afebrile, no leukocytosis Tbili 2.6 (dbili 1.3), AST 914, ALT 608,Alk phos 244 CT abd/pelvis with : 1. No biliary ductal dilatation. Trace stranding within the cholecystectomy bed which is not unexpected in the early postoperative period. No operative bed fluid collections. 2. Evidence for chronic pancreatitis. No CT evidence for acute pancreatitis. 3. Extensive colonic diverticulosis. No evidence for acute diverticulitis. ED discussed with GI who recommended MRCP MRCP this evening revealing : 1. 2nd part of the duodenum medial wall [id number] shows a diverticulum that it indents the distal portion of the CBD. CBD is prominent proximally, measuring 9 mm with no intrahepatic biliary dilation 2. No CBD stones 3. Cholecystectomy General surgery and GI consulted Continue Zosyn empirically for now NPO at midnight in case GI recommending transfer for ERCP in AM Trend LFTs Gentle fluids, antiemetics, pain control (4) Diabetes mellitus, type 2: Plan: A1c 8.1 in Oct 2024 Hold home agents SSI while in-patient BSG AC HS (5) HTN (hypertension): Plan: Normotensive. Continue Toprol HS (6) HLD (hyperlipidemia): Plan: Hold statin for now DVT Ppx: SCDs Code status: FULL PCP: Ben ([facility]) Dispo: Admitted to med/surg Patient seen in collaboration with Dr. Diehl. Please see addendum. I spent a total of 75 minutes coordinating, documenting, and providing care for this patient excluding time spent in the performance of separately billed services or time spent by another provider/QHP. History of Present Illness Chief Complaint: abd pain, nausea Primary Care Provider: Malik Contreras MD This is a 79yo M with a PMH of DM II, HTN, HLD, history of mouth cancer s/p surgery in early as well as recent laparoscopic cholecystectomy and umbilical hernia repair with mesh in November 2024 who presents with abdominal pain and nausea since yesterday. Underwent lap raj for and umbilical hernia repair with mesh in November 2024 and had a routine post-op follow up with surgeon Dr. Aguila in December and post-op course has been uncomplicated. Has been feeling well post-operatively until yesterday when he developed nausea and concurrent mid abdominal pain described as dull, tight and constant. Exacerbated with movement. Was able to tolerate a small amount of toast around noon. No food or anything to drink since then. No F/C, CP, SOB, dysuria. No melena or hematochezia. Last bowel movement was the night before last. Has been taking all medications as prescribed. ED provider discussed with GI, who is recommending MRCP and may require eventual transfer for ERCP. Gen surgery also consulted to evaluate patient. Allergies Allergy/AdvReac Type Severity Reaction Status Date / Time No Known Allergies Allergy Verified 12/14/24 05:48 Home Medications Medication Instructions Recorded Confirmed Type aspirin 81 mg tablet,delayed 81 mg PO QPM 11/15/24 02/02/25 History release dulaglutide 3 mg/0.5 mL 3 mg subcut WK 11/15/24 02/02/25 History subcutaneous pen injector (Trulicity) ezetimibe 10 mg-simvastatin 20 mg 1 tab PO HS 11/15/24 02/02/25 History tablet metformin 1,000 mg tablet 1,000 mg PO BID 11/15/24 02/02/25 History metoprolol succinate 50 mg 50 mg PO QPM 11/15/24 02/02/25 History tablet,extended release 24 hr omega 7-vao-znz-fish oil 60 mg-90 1 - 2 cap PO UD 11/15/24 02/02/25 History mg-500 mg capsule (Fish Oil) tamsulosin 0.4 mg capsule 0.4 mg PO QPM 11/15/24 02/02/25 History glipizide 5 mg tablet 5 mg PO QPM 12/02/24 02/02/25 History oxycodone-acetaminophen 5 mg-325 1 tab PO Q6H PRN pain #10 tabs 12/14/24 02/02/25 Rx mg tablet (Percocet) Past Med/Surg History Problem List (Updated 02/02/25 @ 17:10 by Olive Kelly PA-C) Transaminitis Post-operative pain (Acute) Pancreatitis (Acute) Elevated LFTs (Acute) Abdominal pain, acute (Acute) Medical History (Updated 02/02/25 @ 17:10 by Olive Kelly PA-C) HLD (hyperlipidemia) HTN (hypertension) History of oral cancer dx 2002; 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 Social History Smoking Status: Never smoker Second Hand Exposure: No; Do You Dip or Chew Tobacco: No; Hx Alcohol Use: No Hx Substance Use: No Preferred Language: Uzbek Communication Ability: Effective Prototyper Required: No Beliefs That Will Affect Care: None Current Living Situation: Spouse Feels Safe at Home: Yes Assistive Devices: Glasses and Hearing Aid - Bilateral Results & Data Results & Data Vital Signs (Past 12 Hours) Vital Signs Temp Pulse Pulse Resp BP BP Pulse Ox 02/02/25 18:02 64 02/02/25 17:26 70 16 137/78 98 02/02/25 16:30 69 17 98 02/02/25 16:21 66 23 97 02/02/25 16:00 125/67 02/02/25 15:54 67 18 94 02/02/25 15:48 63 17 96 02/02/25 15:13 139/75 02/02/25 15:00 68 20 95 02/02/25 15:00 67 20 126/78 97 02/02/25 14:51 64 21 96 02/02/25 14:27 66 20 97 02/02/25 14:18 64 22 94 02/02/25 14:11 66 02/02/25 14:09 74 24 93 02/02/25 13:23 70 14 99 02/02/25 13:22 72 15 138/69 99 02/02/25 12:53 36.5 C 69 16 156/73 H 99 O2 Del Method 02/02/25 18:02 02/02/25 17:26 Room Air 02/02/25 16:30 02/02/25 16:21 02/02/25 16:00 02/02/25 15:54 02/02/25 15:48 02/02/25 15:13 02/02/25 15:00 02/02/25 15:00 Room Air 02/02/25 14:51 02/02/25 14:27 02/02/25 14:18 02/02/25 14:11 02/02/25 14:09 02/02/25 13:23 Room Air 02/02/25 13:22 Room Air 02/02/25 12:53 Room Air Code Status & VTE Plan VTE Prophylaxis Plan VTE Prophylaxis will be ordered: Yes Supervising Physician Co-Signing Physician Notes Patient is a 79-year-old male with history of diabetes mellitus, hypertension, hyperlipidemia, oral cancer and other medical problems who was recently hospitalized for management of umbilical hernia repair and suspected gallstone pancreatitis underwent lap raj at the time presents with history of nausea and abdominal pain. Denies any chest pain, fever, chills, dyspnea. Please review HPI for complete details of presentation. I personally reviewed blood work and imaging studies. Noted abnormal LFTs, elevated lipase. CT abdomen showed trace stranding within cholecystectomy bed and findings suggestive of chronic pancreatitis with extensive diverticulosis. Chest x-ray showed no acute process. MRCP showed diverticulum intending distal portion of CBD which is proximal only 9 mm with no intrahepatic biliary dilatation. No CBD stones noted. EKG showed normal sinus rhythm with PACs. Physical Exam: Vitals signs as noted above General Appearance:Moderately built and nourished, no apparent distress Head: normocephalic, Atraumatic Eyes: normal inspection, EOMI Neck: supple, Trachea midline Respiratory/Chest: Normal breath sounds, CTA, No accessory muscle use Cardiovascular: S1, S2, No murmur Abdomen/GI:Soft, mildly distended, non tender, Bowel sounds present, no guarding or rigidity Extremities/Musculoskeletal:normal inspection, no edema Neurologic/Psych:AAOX3, grossly no focal neurological deficits Skin: normal color, warm Obstructive jaundice Likely secondary to diverticulum intending CBD Suspected pancreatitis Empirically on Zosyn, IV fluids N.p.o. after midnight for possible ERCP need for sphincterotomy Await GI evaluation and recommendations Pain control as needed Agree with holding statin Consider to discontinue Trulicity on discharge likely contributing to recurrent pancreatitis I personally interviewed and examined the patient at bedside. I have reviewed the advanced practitioner's documentation on the date of service referred in not e and agree with plan. Patient's care is coordinated with Olive Kelly PA-C. Please refer to the documentation above for details of patient's presentation and for discussion of other issues. I spent a total of 32minutes coordinating, documenting, and providing care for this patient excluding time spent in the performance of separately billed services or time spent by another provider/QHP.
[2025-02-02] MEDS: PIPERACILLIN/TAZOBACTAM 4.5 GM/100 ML BAG IV SCH (19:28)
[2025-02-02] MEDS: SODIUM CHLORIDE 0.9% 500 ML IV SCH (19:34)
--- OUTSIDE RECORDS SUMMARY | 2025-02-02 20:34 | External Medical Summary | Summary of Care ---
Author Name Unknown Organization [facility] Address [address] [place] [address] Phone [phone] Care Team Providers Care Log Manager Name Role Phone Unavailable Primary Care Provider Unavailabl e Encounter Details Date Type Department Care Team (Late Contact Info) Description 12/14/2024 Result Scan Unspecified Department <No scans attached> Allergies No known active allergiesdocumented as of this encounter (statuses as of 12/16/2024) Medications Aspirin 325 MG Oral Tablet Delayed Release Take 1 Tablet by mouth. Active Ciclopirox Olamine 0.77 % External Cream APPLY TO AFFECTED AREA(S) TWO TIMES A DAY 4 Active Trulicity 3 MG/0.5ML Subcutaneous Solution Auto-injector INJECT 1 PEN UNDER THE SKIN ONCE EVERY 7 DAYS 5 Active Ezetimibe-Simvast atin 10-20 MG Oral Tablet Take 1 Tablet by mouth. 4 Active glipiZIDE 5 MG Oral Tablet (Glucotrol) TAKE ONE TABLET BY MOUTH EVERY DAY WITH BIGGEST MEAL OF THE DAY Active documented as of this encounter (statuses as of 12/16/2024) Active Problems No known active problems documented as of this encounter (statuses as of 12/16/2024) Social History Tobacco Use Types Packs/Day Years Used Date Smoking Tobacco: Never Smokeless Tobacco: Never Sex and Gender Information Value Date Recorded Sex Assigned at Not on file Legal Sex Male 9:56 AM EST Gender Identity Not on file Sexual Orientation Not on file documented as of this encounter Plan of Treatment Upcoming Encounters Date Type Department Care Team (Late st Contact Info) Description 12/30/2024 3:15 PM EDT Office Visit General Surgery, [facility] [address] [place] [phone] Levon Aguila MD [address] [place] [id number] Health Maintenance Due Date Last Done Comments Depression Screening 1957 Hepatitis C Screening 1963 DTap/Tdap Vaccines (1 - Tdap) 1964 Zoster Vaccines (2 of 3) 07/17/2016 05/22/2016 COVID-19 Vaccine (4 - season) 2024 08/04/2021, 01/11/2021, 12/14/2020 Influenza Vaccine (FLU shot) (#1) 2024 08/28/2022, 08/28/2022, 07/02/2020, Additional history exists Pneumococcal Vaccine: 50+ Years Completed 10/27/2015, 07/08/2013 HPV (Gardasil) Vaccine Aged Out No lo nger eligible based on patient's age to complete this topic Hepatitis B Vaccine Aged Out No longe r eligible based on patient's age to complete this topic MENINGOCOCCAL (MENACTRA/MENVEO) Aged Out No longer eligible based on patient's age to complete this topic Meningitis B Vaccine (Bexsero/Trumemba) Aged Out No longer eligible based on patient's age to complete this topic documented as of this encounter Medical Devices Not on filedocumented as of this encounter Procedures Procedure Name Priority Date/Time Associated Diagnosis Comments OUTSIDE LAB RESULTS 12/14/2024 documented in this encounter Results * OUTSIDE LAB RESULTS (12/14/2024) 12/14/2024 us No Physician Data Unknown LABORATORY Final Result documented in this encounter
--- OUTSIDE RECORDS SUMMARY | 2025-02-02 20:34 | External Medical Summary | Summary of Care ---
Author Name Unknown Organization [facility] Address [address] [place] [address] Phone [phone] Care Team Providers Care General Dentist/Owner Name Role Phone Unavailable Primary Care Provider Unavailabl e Reason for Visit * Reason Onset Date Comments Advice 02/02/2025 Encounter Details Date Type Department Care Team (Late st Contact Info) Description 02/02/2025 Telephone General Surgery, [facility] [address] [facility] [place] [phone] Services, Scheduling [address] [place] [address] Advice Allergies No known active allergiesdocumented as of this encounter (statuses as of 02/02/2025) Medications Aspirin 325 MG Oral Tablet Delayed [...] as of this encounter (statuses as of 02/02/2025) Active Problems No known active problems documented as of this encounter (statuses as of 02/02/2025) Social History Tobacco Use Types Packs/Day Years Used Date Smoking Tobacco: Never Smokeless Tobacco: Never Sex and Gender Information Value Date Recorded Sex Assigned at Not on file Legal Sex Male 9:56 AM EST Gender Identity Not on file Sexual Orientation Not on file documented as of this encounter Miscellaneous Notes * Telephone Encounter - Erika Moralez LPN - 02/02/2025 11:03 AM EDT Called and left msg on machine for pt to call us back and discuss. * Telephone Encounter - Taina Boateng OSA - 02/02/2025 9:32 AM EDT Pt daughter calling in, pt had surgery with Dr. Aguila on 12/14. Everything was going very well until yesterday. He experienced abdominal cramping and tenderness that persisted over night into this morning. Pt did have nausea with and episode of vomiting this morning. No answer on warm transfer, please return call at [phone] documented in this encounter Plan of Treatment Upcoming Encounters Date Type Department Care Team (Late st Contact Info) Description 02/04/2025 3:00 PM EDT Office Visit General Surgery, [facility] [address] [place] [phone] Levon Aguila MD [address] [place] [address] Health Maintenance Due Date Last Done Comments Depression Screening 1957 Hepatitis C Screening 1963 DTap/Tdap Vaccines (1 - Tdap) 1965 Zoster Vaccines (2 of 3) 07/17/2016 05/22/2016 COVID-19 Vaccine (4 - season) 2024 08/04/2021, 01/11/2021, 12/14/2020 Influenza Vaccine (FLU shot) (Season Ended) 2025 08/28/2022, 08/28/2022, 07/02/2020, Additional history exists Pneumococcal [...]
--- OUTSIDE RECORDS SUMMARY | 2025-02-02 20:34 | External Medical Summary | Summary of Care ---
Author Name Unknown Organization [facility] Address [address] [place] [address] Phone [phone] Care Team Providers Care Software Asset Management Analyst Name Role Phone Unavailable Primary Care Provider Unavailabl e Reason for Visit * Reason Comments Post-Op 12/14/2024. Lap chol e and umbilical repair. Encounter Details Date Type Department Care Team (Latest Contact Info) Description 12/30/2024 3:15 PM EDT Office Visit General Surgery, [facility] [address] [place] [address] Levon Aguila MD [address] [place] [address] Postop check*; S/P laparoscopic cholecystectomy Allergies No known active allergiesdocumented as of this encounter (statuses as of 12/30/2024) Medications Aspirin 325 MG Oral Tablet Delayed [...] as of this encounter (statuses as of 12/30/2024) Active Problems No known active problems documented as of this encounter (statuses as of 12/30/2024) Social History Tobacco Use Types Packs/Day Years Used Date Smoking Tobacco: Never Smokeless Tobacco: Never Sex and Gender Information Value Date Recorded Sex Assigned at Not on file Legal Sex Male 9:56 AM EST Gender Identity Not on file Sexual Orientation Not on file documented as of this encounter Last Filed Vital Signs Vital Sign Reading Time Taken Comments Blood Pressure 136/63 12/30/2024 3:02 PM EDT Pulse 66 12/30/2024 3:02 PM EDT Temperature 36.4 °C (97.5 °F) 12/30/2024 3:02 PM ED T Respiratory Rate - - Oxygen Saturation - - Inhaled Oxygen Concentration - - Weight 79.8 kg (176 lb) 12/30/2024 3:02 PM EDT Height - - Body Mass Index - - documented in this encounter Progress Notes * Levon Aguila MD - 12/30/2024 3:35 PM EDT Attila Finley is s/p a laparoscopic cholecystectomy and umbilical hernia repair with mesh on 12/14/2024. Patient is overall doing well. The patient is not having any pain. Fever has not been present. He has no wound drainage and has no wound erythema. Patient is slowly resuming normal activities but still refraining from heavy lifting as recommended. PE: Blood pressure 136/63, pulse 66, temperature 36.4 °C (97.5 °F), weight 79.8 kg (176 lb). BP 136/63 | Pulse 66 | Temp 36.4 °C (97.5 °F) | Wt 79.8 kg (176 lb) General: alert, healthy, and no distress Head: Normocephalic, No masses, lesions, tenderness or abnormalities Eye Exam: conjunctiva are pink and non-injected, sclera clear Abdomen: abdomen soft, non-tender, and incisions healing well without erythema discharge Extremities: no edema, no clubbing, no cyanosis Skin: skin color, texture, turgor are normal, no rashes or significant lesions Assessment: Attila Finley is doing well. We discussed continued weight lifting restrictions fora full 4-6 weeks after surgery. All questions answered. Plan: follow - up 4 weeks Levon Aguila MD 12/30/2024 3:35 PM documented in this encounter Nursing Notes * Neyda Ahmadi MED ASSIST - 12/30/2024 3:03 PM EDT Chief Complaint Patient presents with Post-Op 12/14/2024. Lap raj and umbilical repair. Verified patient. No pain. Appetite is good. Incisions are healing well. Bowel movement is fine. documented in this encounter Plan of Treatment Upcoming Encounters Date Type Department Care Team (Late st Contact Info) Description 02/04/2025 3:00 PM EDT Office Visit General Surgery, [facility] [address] [place] [phone] Levon Aguila MD [address] [place] [address] Health Maintenance Due Date Last Done Comments Depression Screening 1957 Hepatitis C Screening 1963 DTap/Tdap Vaccines (1 - Tdap) 1965 Zoster Vaccines (2 of 3) 07/17/2016 05/22/2016 COVID-19 Vaccine ( season) 2024 08/04/2021, 01/11/2021, 12/14/2020 Influenza Vaccine [...] Not on filedocumented as of this encounter Visit Diagnoses Diagnosis Postop check- Primary Follow-up examination, following unspecified surgery S/P laparoscopic cholecystectomy Other postprocedural status documented in this encounter"
--- OUTSIDE RECORDS SUMMARY | 2025-02-02 20:34 | External Medical Summary | Summary of Care ---
Author Name Unknown Organization [facility] Address [address] [place] [address] Phone [phone] Care Team Providers Care Vender Name Role Phone Unavailable Primary Care Provider Unavailabl e Reason for Visit * Reason Onset Date Comments Surgery 11/17/2024 Encounter Details Date Type Department Care Team (Late st Contact Info) Description 11/17/2024 Telephone General Surgery, [facility] [address] [place] [phone] Levon Aguila MD [address] [place] [address] Surgery Social History Tobacco Use Types Packs/Day Years Used Date Smoking Tobacco: Never Assessed Sex and Gender Information Value Date Recorded Sex Assigned at Not on file Legal Sex Male 9:56 AM EST Gender Identity Not on file Sexual Orientation Not on file documented as of this encounter Miscellaneous Notes * Telephone Encounter - Nickie Gallagher OSA - 11/18/2024 8:06 AM EST Scheduled on 11/26/24. * Telephone Encounter - Melva Humphrey LPN - 11/18/2024 7:55 AM EST Please set patient up Saturday, he will need a concsult. * Telephone Encounter - José Bowles OSA - 11/17/2024 3:35 PM EST Pt called in stating that they had discussed surgery with and at [place] they were advise to schedule and would like to go ahead and schedule procedure for hernia and gallbladder next week. Please call and assist. documented in this encounter Plan of Treatment Upcoming Encounters Date Type Department Care Team (Late st Contact Info) Description 11/26/2024 1:00 PM EST Office Visit General Surgery, [facility] [address] [place] [phone] Levon Aguila MD [address] [place] [address] Health Maintenance Due Date Last Done Comments Depression Screening 1957 Hepatitis C Screening 1964 DTap/Tdap Vaccines (1 - Tdap) 1965 Pneumococcal Vaccine: 50+ Ye ars (1 of 1 - PCV) 1996 Zoster Vaccines (1 of 2) 1996 COVID-19 Vaccine ( - 2023-2 5 season) 2024 Influenza Vaccine (FLU shot) (#1) 2024 HPV (Gardasil) Vaccine Aged Out No lo nger eligible based on patient's age to complete this topic Hepatitis B Vaccine Aged Out No longe r eligible based on patient's age to complete this topic MENINGOCOCCAL (MENACTRA/MENVEO) Aged Out No longer eligible based on patient's age to complete this topic Meningitis B Vaccine (Bexsero/Trumemba) Aged Out No longer eligible b ased on patient's age to complete this topic documented as of this encounter Medical Devices Not on filedocumented as of this encounter
--- OUTSIDE RECORDS SUMMARY | 2025-02-02 20:34 | External Medical Summary | Summary of Care ---
Author Name Unknown Organization [facility] Address [address] [place] [address] Phone [phone] Care Team Providers Care Panel Instrument Repairer Name Role Phone Unavailable Primary Care Provider Unavailabl e Reason for Visit * Reason Comments NEW PATIENT Hernia Encounter Details Date Type Department Care Team (Late st Contact Info) Description 11/26/2024 1:00 PM EST Office Visit General Surgery, [facility] [address] [address] Levon Aguila MD [address] [place] [address] Pre-op examination*; Symptomatic cholelithiasis; Umbilical hernia without obstruction and without gangrene Allergies No known active allergiesdocumented as of this encounter (statuses as of 11/26/2024) Medications Aspirin 325 MG Oral Tablet Delayed [...] as of this encounter (statuses as of 11/26/2024) Active Problems No known active problems documented as of this encounter (statuses as of 11/26/2024) Social History Tobacco Use Types Packs/Day Years Used Date Smoking Tobacco: Never Smokeless Tobacco: Never Tobacco Cessation:Counseling Given: Not Answered Sex and Gender Information Value Date Recorded Sex Assigned at Not on file Legal Sex Male 9:56 AM EST Gender Identity Not on file Sexual Orientation Not on file documented as of this encounter Last Filed Vital Signs Vital Sign Reading Time Taken Comments Blood Pressure 160/65 11/26/2024 1:05 PM EST Pulse 59 11/26/2024 1:05 PM EST Temperature - - Respiratory Rate - - Oxygen Saturation - - Inhaled Oxygen Concentration - - Weight 79.8 kg (176 lb) 11/26/2024 1:05 PM EST Height - - Body Mass Index - - documented in this encounter Progress Notes * Levon Aguila MD - 11/26/2024 2:39 PM EST Chief Complaint: Chief Complaint Patient presents with NEW PATIENT Hernia History of Present Illness: Attila Finley is a 79 year old male who was recently admitted to the hospital for an incarcerated umbilical hernia that was reduced in the emergency department. His pain resolved after that. While he was in the hospital, he was found to have elevated LFTs. He also had elevated lipase. Ultrasound demonstrated stones in his gallbladder. It was postulated that he passed a stone leading to a very mild pancreatitis. Currently he has no pain. He denies fevers or chills. He denies nausea or vomiting. He denies any other complaints. Past Medical History No past medical history on file. Past Surgical History No past surgical history on file. Medications: Current Outpatient Medications Medication Sig Dispense Refill Aspirin 325 MG Oral Tablet Delayed Release Take 1 Tablet by mouth. Ciclopirox Olamine 0.77 % External Cream APPLY TO AFFECTED AREA(S) TWO TIMES A DAY glipiZIDE 5 MG Oral Tablet (Glucotrol) TAKE ONE TABLET BY MOUTH EVERY DAY WITH BIGGEST MEAL OF THE DAY Trulicity 3 MG/0.5ML Subcutaneous Solution Auto-injector INJECT 1 PEN UNDER THE SKIN ONCE EVERY 7 DAYS (Patient not taking: Reported on 11/26/2024) Ezetimibe-Simvastatin 10-20 MG Oral Tablet Take 1 Tablet by mouth. (Patient not taking: Reported on11/26/2024) No current facility-administered medications for this visit. Allergies: Allergies as of 11/26/2024 (No Known Allergies) Family History No family history on file. Social History Social History Socioeconomic History Marital status: Spouse name: Not on file Number of children: Not on file Years of education: Not on file Highest education level: Not on file Occupational History Not on file Tobacco Use Smoking status: Never Smokeless tobacco: Never Substance and Sexual Activity Alcohol use: Not on file Drug use: Not on file Sexual activity: Not on file Other Topics Concern Not on file Social History Narrative Not on file Social Needs Financial Resource Strain: Not on file Food Insecurity: Not on file Transportation Needs: Not on file Social Connections: Not on file Housing Stability: Not on file ROS: GEN: no weight loss, fever, fatigue HEENT: no changes in vision or hearing, no sinus problems, no sore throat, no hoarseness RESPIRATORY: no cough, wheezing, SOB or change in breathing CARDIOVASCULAR: no exertional chest pain, dyspnea, palpitations GI: see HPI , otherwise negative : no dysuria, hematuria, frequency MUSCULOSKELETAL: no change in joint pains, no new arthritis PSYCHIATRIC: no significant anxiety or depression, unchanged sleep pattern HEME: no bleeding tendency, no clotting tendency NEURO: no significant headache, no seizures , no tremors SKIN: no new rashes, no itching Physical Exam: Blood pressure 160/65, pulse 59, weight 79.8 kg (176 lb). Constitutional: alert, healthy, well nourished Head: normocephalic, atraumatic Eyes: conjunctiva non-injected, sclera white Neck: supple, no adenopathy Lungs: clear to auscultation, breath sounds are equal and symmetric Heart: regular rate & rhythm and no murmur, gallops or rubs Abdomen: soft, non-tender; fat containing reducible small umbilical hernia Extremities: no edema, no skin discoloration Skin: no obvious rashes or significant lesions Imaging: Hospital imaging reviewed personally Impression: Attila Finley is a 79 year old male with cholelithiasis and an umbilical hernia. I feel that the patient is a good candidate for laparascopic cholecystectomy and open umbilical herniarepair. Treatment Plan: Laparascopic cholecystectomy and open umbilical hernia repair possible mesh. Risks discussed with the patient, including but not limited to: bleeding, infection, conversion to open, injury to the common bile duct, bile leak, retained common bile duct stone requiring ERCP, postoperative diarrhea and intolerance to foods postoperatively, recurrence of hernia. Expected same day nature of surgery and recovery period reviewed. All of the patient's questions have been answered. Will schedule at patient's convenience. Attending: Levon Aguila MD 11/26/2024 2:39 PM documented in this encounter Nursing Notes * Melva Humphrey LPN - 11/26/2024 2:26 PM EST Patient is scheduled for surgery on 12/14/[address] Levon Aguila at [facility] Patient has been instructed to wash with chlorhexidine soap the night before and morning of surgery. Patient has been instructed that they may have clear liquids up until 2 hours before their arrival time. Patient is aware that they need the following Preadmission testing. EKG Patient is aware that they need a belly dump driver to take them home after surgery. Patient is aware that they must hold the following medication prior to surgery. Will call pre anesthesia * Neyda Ahmadi MED ASSIST - 11/26/2024 1:10 PM EST Chief Complaint Patient presents with NEW PATIENT Hernia Verified patient. Patient is here with his and daughter. documented in this encounter Plan of Treatment Upcoming Encounters Date Type Department Care Team (Late st Contact Info) Description 12/30/2024 3:15 PM EDT Office Visit General Surgery, [facility] [place] [address] Levon Aguila MD [address] [place] [phone] Health Maintenance Due Date Last Done Comments [...] Not on filedocumented as of this encounter Results * EKG (11/26/2024 3:02 PM EST) 11/26/2024 3:02 PM EST Narrative Procedure Note Octaviano Campa DO - 11/26/2024 3:02 PM EST REASON FOR STUDY: pre op;pre op CONCLUSIONS: Sinus rhythm with Premature supraventricular complexes Otherwise normal ECG Ventricular Rate: 70 Atrial Rate: 64 CA Interval: 184 QRS Duration: 106 QT/QTc: 380/410 ms P-R-T [place]: 56 : -12 : 63 degrees us Levon Aguila MD EKG Final R esult [facility] documented in this encounter Visit Diagnoses Diagnosis Pre-op examination- Primary Preoperative examination, unspecified Symptomatic cholelithiasis Calculus of gallbladder without mention of cholecystitis or obstruction Umbilical hernia without obstruction and without gangrene Pre-op examination Preoperative examination, unspecified documented in this encounter
[2025-02-02] MEDS ORDERED: ACETAMINOPHEN 325 MG TAB PO PRN (20:44)
[2025-02-02] MEDS ORDERED: MELATONIN 3 MG TAB PO PRN (20:44)
[2025-02-02] MEDS ORDERED: POLYETHYLENE (MIRALAX) 17 GM PACK PO PRN (20:44)
[2025-02-02] MEDS ORDERED: ONDANSETRON INJ 2 MG/ML 2 ML VIAL IV PRN (20:44)
[2025-02-02] MEDS: TAMSULOSIN HCL 0.4 MG CAP PO SCH (20:48)
[2025-02-02] MEDS: ASPIRIN 81 MG ECTAB PO SCH (20:48)
[2025-02-02] MEDS: INSULIN ASPART PER UNIT CHARGE SC SCH (20:48)
[2025-02-02] MEDS: METOPROLOL SUCC 50MG EXT REL TAB PO SCH (20:48)
[2025-02-03] MEDS: INSULIN ASPART PER UNIT CHARGE SC SCH ×2 (00:42→12:22)
[2025-02-03 05:31] LABS: Hematocrit (blood only) 33.4 % (42.0-52.0); Mean Corpuscular Hemoglobin 29.7 pg (25.0-34.0); Mean Corpuscular Hgb Conc 32.9 g/dL (32.0-36.0); Mean Corpuscular Volume 90.3 fL (80.0-100.0); Mean Platelet Volume 10.7 fL (9.4-12.4); Platelet Count 150 K/uL (130-400); RDW Coefficient of Variation 14.1 % (11.5-14.5); White Blood Count 6.04 K/ul (4.8-10.8)
--- OUTSIDE RECORDS SUMMARY | 2025-02-03 05:35 | External Medical Summary | Summary of Care ---
Author Name Unknown Organization [facility] Address [address] [place] [address] Phone [phone] Care Team Providers [employer] Flatbed Truck Driver Name Role Phone Unavailable Primary Care Provider Unavailabl e Reason for Visit * Reason Onset Date Comments Advice 02/02/2025 Encounter Details Date Type Department Care Team (Late st Contact Info) Description 02/02/2025 Telephone General Surgery, [facility] [address] [facility] [place] [phone] Services, Scheduling [address] [place] [address] Advice Allergies No known active allergiesdocumented as [...] on warm transfer, please return call at [phone] documented in this encounter Plan of Treatment Upcoming Encounters Date Type Department Care Team (Late st Contact Info) Description 02/04/2025 3:00 PM EDT Office Visit General Surgery, [facility] [address] [place] [phone] Levon Aguila MD [address] [place] [address] Health Maintenance Due Date Last Done Comments [...]
[2025-02-03 05:47] LABS: Albumin Globulin Ratio 1.6 (0.9-2); Albumin Level 3.7 gm/dl (3.4-5.0); BUN Creatinine Ratio 11.7 (10-20); Bilirubin,Total 1.3 mg/dl (0.2-1.0); Creatinine Clr Calc Pharmacy 52.2 ml/min; Globulin 2.3 gm/dl (2.5-4.0); Magnesium 1.8 mg/dl (1.7-2.4); Potassium 3.7 mmol/L (3.5-5.1)
[2025-02-03 07:22] VITALS: BP 116/68; PULSE 70; RESP 17; TEMP 98.1; O2SAT 94
--- NOTE | 2025-02-03 08:50 | Gastrointestinal Consultation ---
Date of Consultation February 03, 2025 Assessment & Plan (1) Transaminitis: 79 year old male w/ T2DM, HTN, HLD, oral cancer s/p surgery, recent laparoscopic cholecystectomy and umbilical hernia repair with mesh in November 2024 admitted w/ abdominal pain, nausea and vomiting since 02/01/25. 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 There was no apparent stone on MR. Discussed additional testing to include EUS/ERCP given his elevated lipase/LFTs and now biliary dilation. Family is requesting transfer to [facility] for evaluation. Recommend NPO status in the event he is able to be transferred today. Trend LFTs. Antiemetics PRN. Analgesia PRN. I spent a total of 60 minutes on the date of service in review of patient's record, and previously obtained information in person and appropriate medical visit, discussion and education of plan, with patient and/or caregiver, placing orders for tests/referral/procedures as medically necessary and documentation of pertinent clinical information in patient's medical records for their visit today. Supervising Physician Co-Signing Physician Notes I personally saw and examined the patient. I have reviewed the chart and agree with the documentation provided by the ACCESS RN including discussion about the assessment, treatment and plan. Briefly, 79 year old male w/ T2DM, HTN, HLD, oral cancer s/p surgery, recent laparoscopic cholecystectomy and umbilical hernia repair with mesh in November 2024 admitted w/ abdominal pain, nausea and vomiting since 02/01/25. 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 There was no apparent stone on MR. Discussed additional testing to include EUS/ERCP given his elevated lipase/LFTs and now biliary dilation. Family is requesting transfer to [facility] for evaluation. Recommend NPO status in the event he is able to be transferred today. Trend LFTs. Antiemetics PRN. Analgesia PRN. Question of papillary stenosis versus compression by duodenal diverticulum versus a retained stone. History of Present Illness Reason for Consultation: elevated LFTs Requesting Physician: Tom Hinojosa MD Attending Physician: Tom Hinojosa MD History of Present Illness 79 year old male w/ T2DM, HTN, HLD, oral cancer s/p surgery, recent laparoscopic cholecystectomy and umbilical hernia repair with mesh in November 2024 admitted w/ abdominal pain, nausea and vomiting since 02/01/25. GI was asked to evaluate given elevated LFTs. He notes he was doing well in his recovery until he developed upper abd pain which radiated through his entire upper abdomen on 02/01. Ther was some mild nausea w/ this but grew concerned when he had an episode of emesis on 02/02. No report of fevers. He notes this AM his pain is better controlled. No nausea/vomiting. LFTs and lipase are somewhat improved but remain elevated. WBC 6 Tbili 2.6 --> 1.3 AST 914 --> 293 ALT 608 --> 366 ALKP 244 --> 204 Lipase 1607 --> 489 MRCP 2024: The 2nd part of the duodenum medial wall 28 x 26 mm shows a diverticulum that it indents the distal portion of the CBD. CBD is prominent proximally, measuring 9 mm with no intrahepatic biliary dilation, correlation with bilirubin levels is recommended. new findings. No CBD stones Cholecystectomy. New finding. CTAP 2024: No biliary ductal dilatation. Trace stranding within the cholecystectomy bed which is not unexpected in the early postoperative period. No operative bed fluid collections.Evidence for chronic pancreatitis. No CT evidence for acute pancreatitis. Allergies Allergy/AdvReac Type Severity Reaction Status Date / Time No Known Allergies Allergy Verified 12/14/24 05:48 Home Medications Medication Instructions Recorded Confirmed Type aspirin 81 mg tablet,delayed 81 mg PO QPM 11/15/24 02/02/25 History release dulaglutide 3 mg/0.5 mL 3 mg subcut WK 11/15/24 02/02/25 History subcutaneous pen injector (Trulicity) ezetimibe 10 mg-simvastatin 20 mg 1 tab PO HS 11/15/24 02/02/25 History tablet metformin 1,000 mg tablet 1,000 mg PO BID 11/15/24 02/02/25 History metoprolol succinate 50 mg 50 mg PO QPM 11/15/24 02/02/25 History tablet,extended release 24 hr omega 0-flj-bbk-fish oil 60 mg-90 1 - 2 cap PO UD 11/15/24 02/02/25 History mg-500 mg capsule (Fish Oil) tamsulosin 0.4 mg capsule 0.4 mg PO QPM 11/15/24 02/02/25 History glipizide 5 mg tablet 5 mg PO QPM 12/02/24 02/02/25 History Patient History Medical History (Updated 02/02/25 @ 17:10 by Olive Kelly PA-C) HLD (hyperlipidemia) HTN (hypertension) History of oral cancer dx 2002; 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 Social History Smoking Status: Never smoker Second Hand Exposure: No; Do You Dip or Chew Tobacco: No; Hx Alcohol Use: No Hx Substance Use: No Preferred Language: Uzbek Communication Ability: Effective [employer] Solutions Architect Required: No Beliefs That Will Affect Care: None Current Living Situation: Spouse Other Information That Helps Us Care for You: No Feels Safe at Home: Yes Safety Concerns: Feels Safe At This Time Assistive Devices: None Review of Systems Review of Systems: All other findings negative except as noted in HPI. Physical Exam Constitutional: WD/WN, vitals as above Respiratory: normal respiratory effort Gastrointestinal (Abdomen): Inspection/Auscultation: normal bowel sounds Percussion/Palpation: + abdomen tender and abdomen soft; no guarding and abdomen not rigid Skin: no rashes, warm and dry Results & Data Vital Signs (Past 12 Hours) Vital Signs Temp Pulse Resp BP Pulse Ox O2 Del Method 02/03/25 07:22 98.1 F 70 17 116/68 94 Room Air Laboratory Results 02/03/25 02/03/25 02/02/25 Range/Units 04:53 00:08 19:21 WBC 6.04 (4.8-10.8) K/ul RBC 3.70 L (4.70-6.10) M/uL Hgb 11.0 L (14.0-18.0) g/dl POC Hgb (14.0-18.0) g/dl Hct 33.4 L (42.0-52.0) % POC Hct (42-52) % MCV 90.3 (80.0-100.0) fL MCH 29.7 (25.0-34.0) pg MCHC 32.9 (32.0-36.0) g/dL RDW Std Deviation 46.0 (36.4-46.3) fL RDW Coeff of Ariel 14.1 (11.5-14.5) % Plt Count 150 (130-400) K/uL MPV 10.7 (9.4-12.4) fL Immature Gran % (Auto) % Neut % (Auto) % Lymph % (Auto) % [place] % (Auto) % Eos % (Auto) % Baso % (Auto) % Neut # (Auto) (1.40-6.50) K/uL Lymph # (Auto) (1.20-3.40) K/uL [place] # (Auto) (0.11-0.59) K/uL Eos # (Auto) (0.00-0.50) K/uL Baso # (Auto) (0.00-0.20) K/uL Immature Gran # (Auto) (0.01-0.20) K/uL PT (9.0-12.0) Seconds INR (0.9-1.1) APTT (21-31) Seconds PTT Ratio POC Sodium (135-144) mmol/L Sodium 139 (136-145) mmol/L POC Potassium (3.3-5.0) mmol/L Potassium 3.7 (3.5-5.1) mmol/L POC Chloride (101-112) mmol/L Chloride 106 (98-107) mmol/L Carbon Dioxide 28 (21-32) mmol/L POC Total CO2 (24-31) mmol/L Anion Gap 5 (3-11) POC Anion Gap (16-25) mmol/L POC BUN (7-18) mg/dl BUN 13 (6-23) mg/dl Creatinine 1.11 (0.6-1.4) mg/dl POC Creatinine (0.6-1.3) mg/dl Est Cr Clr Drug Dosing 52.2 ml/min eGFR 67.97 BUN/Creatinine Ratio 11.7 (10-20) Glucose 88 (70-99(Fasting)) mg/dl POC Glucose 111 H 92 (70-99) mg/dl POC Glucose (other) (70-99) mg/dl Calcium 9.0 (8.6-10.3) mg/dl POC Ioniz Calcium [place] (1.12-1.32) mmol/l Magnesium 1.8 (1.7-2.4) mg/dl Total Bilirubin 1.3 H (0.2-1.0) mg/dl Direct Bilirubin (0-0.2) mg/dl AST 293 H (13-39) U/L ALT 366 H (7-52) U/L Alkaline Phosphatase 204 H (34-104) U/L Troponin I High Sens (0-20) pg/ml Total Protein 6.0 (6.0-8.3) gm/dl Albumin 3.7 (3.4-5.0) gm/dl Globulin 2.3 L (2.5-4.0) gm/dl Albumin/Globulin Ratio 1.6 (0.9-2) Lipase 489 H (11-82) U/L Urine Color Urine Appearance (Clear) Urine pH (4.5-7.5) Ur Specific [place] (1.000-1.030) Urine Protein (Negative) Urine Glucose (UA) (Negative) Urine Ketones (Negative) Urine Blood (Negative) Urine Nitrite (Negative) Urine Bilirubin (Negative) Urine Urobilinogen (Negative) Ur Leukocyte Esterase (Negative) Urine WBC (Auto) (0-5) /hpf Urine RBC (Auto) (0-2) /hpf U Hyaline Cast (Auto) (0-2) /lpf U Epithel Cells (Auto) (0-2) /hpf Urine Bacteria (Auto) (None Seen) 02/02/25 02/02/25 02/02/25 Range/Units 13:29 13:21 13:20 WBC 8.05 (4.8-10.8) K/ul RBC 4.19 L (4.70-6.10) M/uL Hgb 12.4 L (14.0-18.0) g/dl POC Hgb 12.9 L (14.0-18.0) g/dl Hct 37.7 L (42.0-52.0) % POC Hct 38 L (42-52) % MCV 90.0 (80.0-100.0) fL MCH 29.6 (25.0-34.0) pg MCHC 32.9 (32.0-36.0) g/dL RDW Std Deviation 45.2 (36.4-46.3) fL RDW Coeff of Ariel 13.8 (11.5-14.5) % Plt Count 182 (130-400) K/uL MPV 10.5 (9.4-12.4) fL Immature Gran % (Auto) 0.2 % Neut % (Auto) 75.8 % Lymph % (Auto) 14.9 % [place] % (Auto) 6.3 % Eos % (Auto) 2.4 % Baso % (Auto) 0.4 % Neut # (Auto) 6.10 (1.40-6.50) K/uL Lymph # (Auto) 1.20 (1.20-3.40) K/uL [place] # (Auto) 0.51 (0.11-0.59) K/uL Eos # (Auto) 0.19 (0.00-0.50) K/uL Baso # (Auto) 0.03 (0.00-0.20) K/uL Immature Gran # (Auto) 0.02 (0.01-0.20) K/uL PT 10.7 (9.0-12.0) Seconds INR 1.0 (0.9-1.1) APTT 25 (21-31) Seconds PTT Ratio 0.9 POC Sodium 138 (135-144) mmol/L Sodium 138 (136-145) mmol/L POC Potassium 3.9 (3.3-5.0) mmol/L Potassium 4.0 (3.5-5.1) mmol/L POC Chloride 103 (101-112) mmol/L Chloride 104 (98-107) mmol/L Carbon Dioxide 29 (21-32) mmol/L POC Total CO2 24 (24-31) mmol/L Anion Gap 5 (3-11) POC Anion Gap 17.0 (16-25) mmol/L POC BUN 20 H (7-18) mg/dl BUN 21 (6-23) mg/dl Creatinine 1.15 (0.6-1.4) mg/dl POC Creatinine 1.2 (0.6-1.3) mg/dl Est Cr Clr Drug Dosing 51.2 ml/min eGFR 65.14 BUN/Creatinine Ratio 18.3 (10-20) Glucose 171 H (70-99(Fasting)) mg/dl POC Glucose (70-99) mg/dl POC Glucose (other) 173 H (70-99) mg/dl Calcium 9.5 (8.6-10.3) mg/dl POC Ioniz Calcium [place] 1.20 (1.12-1.32) mmol/l Magnesium (1.7-2.4) mg/dl Total Bilirubin 2.6 H (0.2-1.0) mg/dl Direct Bilirubin 1.3 H (0-0.2) mg/dl AST 914 H (13-39) U/L ALT 608 H (7-52) U/L Alkaline Phosphatase 244 H (34-104) U/L Troponin I High Sens 7.3 (0-20) pg/ml Total Protein 6.8 (6.0-8.3) gm/dl Albumin 4.2 (3.4-5.0) gm/dl Globulin 2.6 (2.5-4.0) gm/dl Albumin/Globulin Ratio 1.6 (0.9-2) Lipase 1607 H (11-82) U/L Urine Color Dark Yellow Urine Appearance Clear (Clear) Urine pH 6.5 (4.5-7.5) Ur Specific [place] 1.023 (1.000-1.030) Urine Protein 1+ H (Negative) Urine Glucose (UA) Trace H (Negative) Urine Ketones Trace H (Negative) Urine Blood Negative (Negative) Urine Nitrite Negative (Negative) Urine Bilirubin 1+ H (Negative) Urine Urobilinogen Negative (Negative) Ur Leukocyte Esterase Negative (Negative) Urine WBC (Auto) 0-5 (0-5) /hpf Urine RBC (Auto) 0-2 (0-2) /hpf U Hyaline Cast (Auto) 0-2 (0-2) /lpf U Epithel Cells (Auto) 0-2 (0-2) /hpf Urine Bacteria (Auto) None Seen (None Seen) PG Care Time/CCT Total # of Minutes Spent Total Time Spent with Patient: Total time spent is greater than 50% in coordination of care (as documented) at patient's floor/unit and/or counseling patient: Coding Level of Care Code 69764 INT INP/OBS CARE MIN Diagnoses Transaminitis R74.01
[2025-02-03] MEDS: Nursing to Pharmacy Communication SCH (11:26)
--- NOTE | 2025-02-03 13:25 | Discharge Summary ---
Date of Service February 03, 2025 Admission HPI Per Admitting Provider This is a 79yo M with a PMH of DM II, HTN, HLD, history of mouth cancer s/p surgery in early as well as recent laparoscopic cholecystectomy and umbilical hernia repair with mesh in November 2024 who presents with abdominal pain and nausea since yesterday. Underwent lap raj for and umbilical hernia repair with mesh in November 2024 and had a routine post-op follow up with surgeon Dr. Aguila in December and post-op course has been uncomplicated. Has been feeling well post-operatively until yesterday when he developed nausea and concurrent mid abdominal pain described as dull, tight and constant. Exacerbated with movem ent. Was able to tolerate a small amount of toast around noon. No food or anything to drink since then. No F/C, CP, SOB, dysuria. No melena or hematochezia. Last bowel movement was the night before last. Has been taking all medications as prescribed. ED provider discussed with GI, who is recommending MRCP and may require eventual transfer for ERCP. Gen surgery also consulted to evaluate patient. Admission Exam Per Admitting Provider General Appearance:Moderately built and nourished, no apparent distress Head: normocephalic, Atraumatic Eyes: normal inspection, EOMI Neck: supple, Trachea midline Respiratory/Chest: Normal breath sounds, CTA, No accessory muscle use Cardiovascular: S1, S2, No murmur Abdomen/GI:Soft, mildly distended, non tender, Bowel sounds present, no guarding or rigidity Extremities/Musculoskeletal:normal inspection, no edema Neurologic/Psych:AAOX3, grossly no focal neurological deficits Skin: normal color, warm Principal Diagnosis Acute pancreatitis Tranamiinits Discharge Exam Constitutional: WD/WN, vitals as above, NAD, sitting up in bed, pleasant, conversing easily Respiratory: normal respiratory effort, lungs clear to auscultation, no wheeze, rales, rhonchi. Normal insp/exp effort, no accessory muscle use Cardiovascular: RRR, no murmur, no edema Vessels: no JVD or carotid bruit Chest: normal inspection of chest Abdomen: normal bowel sounds, soft, nontender, no hepatosplenomegaly Musculoskeletal: no cyanosis or clubbing, extremities motor strength 5/5 Skin: no rashes, warm and dry normal turgor Neurologic: PERRL, EOMI, accommodation nl, no face palsy, no dysarthria CN's II- XI intact bilaterally and moves all extremities Psychiatric: A+Ox3, euthymic affect Discharge Data Allergies Allergy/AdvReac Type Severity Reaction Status Date / Time No Known Allergies Allergy Verified 12/14/24 05:48 Consultations 02/02/25 16:04 ED Decision to Admit Stat 02/02/25 19:01 Consult Gastroenterology Routine Ordered Studies 02/02/25 12:59 CT abd pelvis IV con only Stat 02/02/25 16:15 MR MRCP Stat Hospital Course (1) Post-operative pain: (2) Abdominal pain, acute: (3) Transaminitis: (4) Diabetes mellitus, type 2: (5) HTN (hypertension): (6) HLD (hyperlipidemia): Plan This is a 79yo M with a PMH of DM II, HTN, HLD, history of mouth cancer s/p surgery in early as well as recent laparoscopic cholecystectomy and umbilical hernia repair with mesh in November 2024 who presents with abdominal pain and nausea for 1 day. Total bilirubin- 2.6 (direct bilirubin- 1.3), AST 914, ALT 608,Alk phos 244 Lipase- 1607 CT abdomen pelvis on admission did not show any biliary dilation; MRCP showed second part of the duodenum medial wall 28mm X 26 mm shows a diverticulum that i ndents the distal portion of CBD. CBD is prominent proximally, measuring 9 mm with no intrahepatic biliary dilation. Patient was started on IV fluid, empirically placed on IV Zosyn and GI was consulted for comanagement. GI recommended transfer to tertiary care center for ERCP/EUS. Discussion was done with on-call GI provider at [facility]; patient was accepted for transfer. Please note the above document was generated using voice recognition software. It may contain grammatical, syntax or spelling errors. Any formal questions or concerns about the content, text or information contained within the body of this dictation should be directly addressed to the provider for clarification Total Time Total Time Spent Total Time Spent (In Minutes): 56 Total Time Includes: Examination of the Patient, Discharge Planning, Medication Reconciliation, Communication With Other Providers and Other Discharge Plan Discharge Items Patient Disposition: Transfer Acute Care Hospital Reason For Visit: TRANSAMINITIS, NAUSEA Discharge Diagnosis: Acute Pancreatitis Condition on Discharge: Good Activity: Resume your previous activity Non-emergency contact: Primary Care Provider Call non-emergency contact if: you have any medication questions and your symptoms worsen Follow-up/Referrals: Malik Contreras MD [Primary Care Provider] - Diet: Regular Addtl Attending Provider Instructions: Follow up with PCP after follow up from [facility] Pending Studies at Discharge: No Stand-Alone Forms: [facility] Patient informed of condition?: No DNR: No Discharge Level of Care: Other Communicable Disease: No Discharge Prognosis: Stable Lines: Peripheral IV Urinary Catheter: No Medications and DC Order Prescriptions: Continued glipizide 5 mg tablet 5 mg PO QPM metoprolol succinate 50 mg tablet extended release 24 hr 50 mg PO QPM aspirin 81 mg Tablet,Delayed Release (Dr/Ec) 81 mg PO QPM tamsulosin 0.4 mg capsule 0.4 mg PO QPM metformin 1,000 mg tablet 1,000 mg PO BID ezetimibe-simvastatin 10-20 mg tablet 1 tab PO HS Hold Instructions: Resume on 11/23/24. Hold until surgery omega 2-vkk-hki-fish oil [Fish Oil] 60-90-500 mg Capsule 1 - 2 cap PO UD Rx Instructions: 1 cap QAM and 2 cap QPM Trulicity 3 mg/0.5 mL pen injector 3 mg SUBCUT WK Hold Instructions: Resume on 11/23/24. Hold until surgery Patient Comments: sundays Rx Instructions: Sun Discharge Orders: Discharge Order (Routine); Ordered 02/03/25 Ordered By: Tom Hinojosa Admission Data Admit Date/Time: 02/02/25 18:45 Attending Provider: Tom Hinojosa Admit Provider: Clark Diehl Primary Care Provider: Malik Contreras Other Providers: Jose Laguna; Clark Diehl Other Interventions: Discharge Summary Assessment (RN) Last Done: 02/03/25 13:32
--- NOTE | 2025-02-03 16:29 | Electrocardiogram Report ---
Test Reason : Blood Pressure : */* mmHG Vent. Rate : 70 BPM Atrial Rate : 70 BPM P-R Int : 174 ms QRS Dur : 102 ms QT Int : 382 ms P-R-T Axes : 32 -27 57 degrees QTcB Int : 412 ms Sinus rhythm with Premature atrial complexes Incomplete right bundle branch block Minimal voltage criteria for LVH, may be normal variant ( Camilo product ) Septal infarct , age undetermined Abnormal ECG When compared with ECG of 14-Nov-2024 23:46, Septal infarct is now Present Confirmed by Jaquan Mackenzie ([id number]) on 02/03/2025 4:29:09 PM Referred By: REFERRED SELF Confirmed By: Jaquan Mackenzie
== END 2025-02-03 15:30 | disposition short-term general hospital (02) | DRG 947 ==
LOC: ED 12:51 → 4W 18:45 → SUATTDRO 18:45 → 4W 20:21